=== PATIENT | female | born 1960 | race Caucasian/White ===

== ENCOUNTER 2020-03-07 20:44 | Inpatient (IN) | payer MEDICAID ==
[~2020-03-07] VITALS: Ht 152.4 cm; Wt 64.0 kg
[2020-03-07] MEDS ORDERED: magnesium hydroxide 30ml (MOM) UD suspension PO PRN (20:55)
[2020-03-07] MEDS ORDERED: traZODone 50mg tablet PO PRN (20:55)
[2020-03-07] MEDS ORDERED: mag hydrox/Alum hydrox/simeth 30ml oral suspension PO PRN (20:55)
[2020-03-07] MEDS ORDERED: loperamide 2mg capsule PO PRN (20:55)
[2020-03-07] MEDS ORDERED: acetaminophen 325mg tablet PO PRN (20:55)
[2020-03-07] MEDS ORDERED: SIMV-42 PO (21:00)
[2020-03-07] MEDS ORDERED: LISI40TA4 PO (21:00)
[2020-03-07] MEDS ORDERED: BUSP10TA11 PO (21:00)
[2020-03-07] MEDS ORDERED: ACYC-202 PO (21:00)
[2020-03-07 21:10] VITALS: BP 141/43
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
[2020-03-08 07:34] VITALS: BP 114/68
[2020-03-08 07:51] LABS: HEMOGLOBIN A1C 5.3 % (4.5-6.2)
[2020-03-08 07:53] LABS: CHOL/HDL RATIO 4.5 (0.00-4.99); CHOLESTEROL 175 MG/DL (0-200); HDL CHOLESTEROL 39 MG/DL (35-60); LDL CHOLESTEROL 110 MG/DL (50-100); TRIGLYCERIDES 159 MG/DL (20-135)
[2020-03-08] MEDS: atorvastatin 20mg tablet PO SCH (07:56)
--- NOTE | 2020-03-08 11:40 | NUR ---
NURSING IFEOMA NOTE: Legal hold: 5150 Client on involuntary status for DTS Report received from Rolan PATTERSON Why are they here: Pt was hanging around a gas station and would not leave when the attendant asked so they police were called. During interaction with the police, the pt asked if she borrow the officers gun to shoot herself. The police brought her to the [place] [facility] and she was accepted then transferred to [facility]. Assessment What has happened this shift: Patient was awake at change of shift. She came to the group room for breakfast. She took her medications as prescribed without hesitation. Client is breathing rapidly upon interview. She is in constant motion and is bot guarded and tearful. She wants to call her brother, but when offered a cordless phone she refuses stating that she can only use the landlines in the nursing office. Let patient know this area is off limit to patients. I want to speak to my brother. I want him to pick me up. Let patient know she is here on a hold and cannot leave at this time. She seemed all right with this information. At this point she became more guarded Why do you want to know all of that? I dont need no help from you. S/I, H/I: Would not answer A/VH: Denies Sleep: See Sleep Assessment ADL's: Independent Group attendance: No Were meds taken: Yes Any med S/E: None noted or reported. Mental Status Exam Appearance: Disheveled but clean Eye contact: Fair, Intermittent Behavior: Resistive to some parts of assessments, Guarded Suspicious of staff - requires reassurance, Polite Speech: Clear Mood: Not too good. Affect: Blunted Thought process: Disorganized Thought Content: Wants to call her brother and leave Cognition: A/O x 4 Insight: Poor Judgment: Poor Interventions PRN's used: None Therapeutic interventions: 1:1 assessment, active listening, therapeutic communication, medication administration/education/monitoring, reassured pt that she is safe here, behavior monitoring and intervention; reality orientation, distraction, redirection, Q 15 minute safety checks. Restraints/seclusion/emergency medication: N/A Justification of Continued Inpatient Treatment: Pt needs stabilization with medication initiation, adjustments and monitoring in a safe and therapeutic environment to prevent harm to patient and/or readmission.
[2020-03-08] MEDS: busPIRone 5mg tablet PO SCH (19:51)
[2020-03-08 20:00] VITALS: BP 106/58
--- NOTE | 2020-03-09 05:13 | NUR ---
NURSING IFEOMA NOTE: EDILIA Legal hold: 5150 Client on involuntary status for DTS Report received from Chelsea RN Why are they here: Pt was hanging around a gas station and would not leave when the attendant asked so they police were called. During interaction with the police, the pt asked if she borrow the officers gun to shoot herself. The police brought her to the [facility] and she was accepted then transferred to [facility]. Assessment What has happened this shift: Pt sleeping at change of shift. When approached for 1:1, pt is very guarded and takes a while to soften up. Pt was tearful during the assessment stating Im scared. I never want to leave here. Im scared. Pt endorsed the delusion of men wanting to come and tie her up with a chain and remove her limbs. Reinforced this is a safe environment and offered patient her night time medication for anxiety, as she was presenting as very anxious. Pt denied a few times but eventually agreed to take the BuSpar. Pt told this RN multiple time she did not want to talk, especially when probed regarding mental health assessment questions, and refused her physical assessment as well as her mental health assessment questions. She looked at this sql report writer suspiciously multiple times during the interview. She attended snack, and was polite during interactions, but did not wish to divulge much about how she was feeling. Pt returned to bed to sleep after snack. S/I, H/I: Would not answer A/VH: Denies Sleep: See Sleep Assessment ADL's: Independent Group attendance: N/A Were meds taken: Yes, with multiple attempts to get her to take it Any med S/E: None noted or reported. Mental Status Exam Appearance: Disheveled but clean Eye contact: Fair, Intermittent Behavior: Resistive to some parts of assessments, Guarded, Suspicious of staff - requires reassurance, Polite Speech: Clear Mood: Im fine, Im scared; Pt presents as tearful, and anxious Affect: Blunted Thought process: Paranoid/Suspicious, Delusional Thought Content: Wants to be left alone, wants to stay here because she is scared of the people out to harm her Cognition: A/O x 4 Insight: Poor Judgment: Poor Interventions PRN's used: None Therapeutic interventions: 1:1 assessment, active listening, therapeutic communication, medication administration/education/monitoring, reassured pt that she is safe here, behavior monitoring and intervention; reality orientation, distraction, redirection, Q 15 minute safety checks. Restraints/seclusion/emergency medication: N/A Justification of Continued Inpatient Treatment: Pt needs stabilization with medication initiation, adjustments and monitoring in a safe and therapeutic environment to prevent harm to patient and/or readmission.
[2020-03-09 08:00] VITALS: BP 112/60
[2020-03-09] MEDS: busPIRone 5mg tablet PO SCH ×2 (08:02→20:00)
[2020-03-09] MEDS: lisinopril 20mg tablet PO SCH (08:03)
[2020-03-09] MEDS: atorvastatin 20mg tablet PO SCH (08:03)
--- NOTE | 2020-03-09 16:14 | NUR ---
NURSING PROGRES NOTE Legal hold: 5150 Client on involuntary status for DTS Report received from RN with use of SBAR Why are they here: Pt was hanging around a gas station and would not leave when the attendant asked so they police were called. During interaction with the police, the pt asked if she borrow the officers gun to shoot herself. The police brought her to the [facility] and she was accepted then transferred to [facility]. Assessment What has happened this shift: Received Pt in bed sleeping w/o distress at beginning of shift. Pt awoke and cooperative with vitals and ate breakfast in community room. Pt took AM meds w/o issue. Several attempts made at conversation with her, during which she used minimal words in soft voice to respond. Poverty of speech evident and she became tearful at one point. Pt became audible after lunch when requesting more food. Pt states she is homeless and did not elaborate on how she got here. Encouraged her to contact friends or family for support. Explained 5150 timing to her as she thought today was the day she was leaving. Pt withdrawn and guarded with minimal interaction, and moments of sadness. S/I, H/I: Pt did not respond to direct qs A/VH: Denies Sleep: Napped ADL's: Independent Group attendance: No Were meds taken: Yes Any med S/E: None noted or reported Mental Status Exam Appearance: Disheveled but clean Eye contact: Poor Behavior: Withdrawn, Guarded, Suspicious of staff, Polite Speech: Clear, too soft to hear at times Mood: Depressed, tearful Affect: Blunted Thought process: Disorganized Thought Content: Wants to leave Cognition: A/O x 4 Insight: Poor Judgment: Poor Interventions PRN's used: None Therapeutic interventions: 1:1 assessment, active listening, therapeutic communication, medication administration/education/monitoring, reassured pt that she is safe here, behavior monitoring and intervention; reality orientation, distraction, redirection, Q 15 minute safety checks. Restraints/seclusion/emergency medication: N/A Justification of Continued Inpatient Treatment: Pt needs stabilization with medication initiation, adjustments and monitoring in a safe and therapeutic environment to prevent harm to patient and/or readmission.
[2020-03-09 20:18] VITALS: BP 106/54
--- NOTE | 2020-03-10 00:40 | NUR ---
Nursing Progress Note: Legal hold: 5150 Client on involuntary status for DTS Report received from Joe RN with use of SBAR Why are they here: Pt was hanging around a gas station and would not leave when the attendant asked so they police were called. During interaction with the police, the pt asked if she borrow the officers gun to shoot herself. The police brought her to the [facility] and she was accepted then transferred to [facility]. Assessment What has happened this shift: The patient was sleeping at shift change. She was woken later for 1:1 assessment. She would not answer any questions about herself. The patient came out of her room at snack time, and sat in the community room. She had Buspar ordered for nighttime, but would not take it, "I'm not taking that, it doesn't work." She got up and went back to her room and climbed in bed. She has been asleep since then. S/I, H/I: No answer A/VH: Denies Sleep: See sleep assessment ADL's: Independent Group attendance: No groups at night Were meds taken: Yes Any med S/E: None reported or observed Mental Status Exam Appearance: Disheveled older lady with stringy hair, wearing green unit scrubs Eye contact: Poor Behavior: Withdrawn, Guarded, Suspicious, paranoid, angry Speech: Clear Mood: Depressed Affect: Flat Thought process: Disorganized Thought Content: Wants to leave Cognition: A/O x 4 Insight: Poor Judgment: Poor Interventions PRN's used: None Therapeutic interventions: 1:1 assessment, active listening, therapeutic communication, medication administration/education/monitoring, reassured pt that she is safe here, behavior monitoring and intervention; reality orientation, distraction, redirection, Q 15 minute safety checks. Restraints/seclusion/emergency medication: N/A Justification of Continued Inpatient Treatment: Pt needs stabilization with medication initiation, adjustments and monitoring in a safe and therapeutic environment to prevent harm to patient and/or readmission.
[2020-03-10 07:49] VITALS: BP 112/72
[2020-03-10] MEDS: busPIRone 5mg tablet PO SCH ×3 (07:53→21:11)
[2020-03-10] MEDS: lisinopril 20mg tablet PO SCH (07:54)
[2020-03-10] MEDS: atorvastatin 20mg tablet PO SCH (07:54)
--- NOTE | 2020-03-10 08:09 | NUR ---
[facility] REFERRAL Completed and faxed [facility] referral. BELEM Trent
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
--- NOTE | 2020-03-10 10:36 | NUR ---
Left message for Eloise's daughter, Alexa (ph# [phone]), requesting a call back to gather additional information. BELEM Trent
--- NOTE | 2020-03-10 17:16 | NUR ---
NURSING PROGRESS NOTE: Eloise Legal hold: 5150 Expires today at 2041. Provider aware. Client on involuntary status for DTS Report received from RN with use of SBAR: LEONARDO Del Toro Why are they here: Pt was hanging around a gas station and would not leave when the attendant asked so they police were called. During interaction with the police, the pt asked if she borrow the officers gun to shoot herself. The police brought her to the [place] [facility] and she was accepted then transferred to [facility]. Assessment What has happened this shift: Received patient in bed sleeping with no distress noted. Patient is cooperative with vitals, 1:1 assessment and compliant with medications. When asked about mental health questions pt states I already answered those questions. Patient isolates to her room, except to get up for meals and snacks. Later in the afternoon this consumer loan underwriter approached patient because she was tearful. Pt states I am scared I dont want to be out there by myself. Patient talks a little about being homeless in [place], but doesnt give detail and then says I dont want to talk about that anymore. S/I, H/I: I already answered those questions. I am just fine. A/VH: I already answered those questions. I am just fine. Sleep: 10 hrs. per Sleep Assessment. Napped intermittently throughout day or just laid on her bed. ADL's: Independent. Needs prompting for ADLs. Encouraged to brush teeth and shower. Group attendance: No Were meds taken: Yes, without incident. Any med S/E: None noted or reported. Mental Status Exam Appearance: Disheveled, greasy-hair, wearing green unit scrubs. Eye contact: Poor Behavior: Withdrawn, guarded, isolates to bed. Up for meals and snacks. Speech: Clear, too soft to hear at times Mood: Depressed, guarded, tearful, scared. Affect: Constricted. Thought process: Poverty of thought Thought Content: Situational. Cognition: A/O x 4 Insight: Poor Judgment: Poor Interventions PRN's used: None Therapeutic interventions: 1:1 assessment, active listening, therapeutic communication, medication administration/education/monitoring, reassured pt that she is safe here, behavior monitoring and intervention; reality orientation, distraction, Q 15 minute safety checks. Restraints/seclusion/emergency medication: N/A Justification of Continued Inpatient Treatment: Pt needs stabilization with medication initiation, adjustments and monitoring in a safe and therapeutic environment to prevent harm to patient and/or readmission.
[2020-03-10] MEDS: LORazepam 1 MG tablet PO PRN (18:11)
--- NOTE | 2020-03-10 18:23 | NUR ---
This typewriter repairer entered pt's room, patient looked frightened and anxious. Patient was rocking her legs and said she felt confused. Pt. couldn't remember if she had seen the doctor. Reassured pt. she was safe and offered her prn Ativan. Administered 1mg Ativan.
[2020-03-10 20:19] VITALS: BP 99/57
[2020-03-10] MEDS: olanzapine 10mg tablet PO SCH (21:01)
--- NOTE | 2020-03-11 00:28 | NUR ---
Nursing Progress Note: Legal hold: 5250 Client on involuntary status for DTS Report received from LEONARDO Diaz with use of SBAR Why are they here: Pt was hanging around a gas station and would not leave when the attendant asked so they police were called. During interaction with the police, the pt asked if she borrow the officers gun to shoot herself. The police brought her to the [facility] and she was accepted then transferred to [facility]. Assessment What has happened this shift: The patient was seen right after she had been given her 5250. It had been explained to her, but she appears confused, and can't remember if she even spoke to a Doctor today. It had been explained to her that she would have a chance to dispute. If she wanted to dispute, she would need a plan that shows her ability to manage her safety, housing, and provide food for herself. She has poverty of thought, and takes time to answer questions, if she answers at all. She was brought her HS medicine, but stated, "I don't want to take any medicine right now." This typewriter mechanic asked RENO Del Toro if she would try. Katey was able to get the patient to take the Olanzapine, but not Buspar. The patient went back to sleep, and has remained isolated to her room all night. S/I, H/I: "Sometimes" A/VH: Denies Sleep: See sleep assessment ADL's: Independent Group attendance: No groups at night Were meds taken: Yes Any med S/E: None reported or observed Mental Status Exam Appearance: Disheveled older lady with stringy, greasy hair, wearing green unit scrubs Eye contact: Poor Behavior: Withdrawn, Guarded, Suspicious, paranoid, irritable Speech: Clear Mood: Depressed Affect: Flat Thought process: Disorganized Thought Content: Wants to leave Cognition: A/O x 4 Insight: Poor Judgment: Poor Interventions PRN's used: None Therapeutic interventions: 1:1 assessment, active listening, therapeutic communication, medication administration/education/monitoring, reassured pt that she is safe here, behavior monitoring and intervention; reality orientation, distraction, redirection, Q 15 minute safety checks. Restraints/seclusion/emergency medication: N/A Justification of Continued Inpatient Treatment: Pt needs stabilization with medication initiation, adjustments and monitoring in a safe and therapeutic environment to prevent harm to patient and/or readmission.
[2020-03-11] MEDS: atorvastatin 20mg tablet PO SCH (07:34)
[2020-03-11] MEDS: lisinopril 20mg tablet PO SCH (07:36)
[2020-03-11 07:47] VITALS: BP 90/40
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
--- NOTE | 2020-03-11 16:09 | NUR ---
NURSING PROGRESS NOTE: Eloise Legal hold: 5250 Client on involuntary status for DTS Report received from RN with use of SBAR: LEONARDO Del Toro Why are they here: Pt was hanging around a gas station and would not leave when the attendant asked so they police were called. During interaction with the police, the pt asked if she borrow the officers gun to shoot herself. The police brought her to the [facility] and she was accepted then transferred to [facility]. Assessment What has happened this shift: Received pt sleeping in bed at shift change. Pt. awakens for medications. Patient is obsessed about her mattress on her bed, because it is not perfectly even and has a slight upward swing towards the knee of the bed, attempted to readjust, without success. During 1:1, patient states I already answered these questions yesterday. Patient will give one or two word answers then shuts down conversation. S/I, H/I: Denies. A/VH: Denies. Sleep: 9 hrs. NOC, napped. ADL's: Independent. Needs prompting for ADLs. Encouraged to brush teeth and shower. Group attendance: No Were meds taken: Yes. Any med S/E: None noted or reported. Mental Status Exam Appearance: Disheveled, dirty grajeda haired woman in casual clothing. Eye contact: Poor Behavior: Withdrawn, guarded, isolates to bed. Up for meals and snacks. Speech: Clear, soft. Mood: Depressed. Affect: Constricted. Thought process: Poverty of thought Thought Content: Uneven mattress. Cognition: A/O x 4 Insight: Poor Judgment: Poor Interventions PRN's used: None Therapeutic interventions: 1:1 assessment, active listening, therapeutic communication, medication administration/education/monitoring, reassured pt that she is safe here, behavior monitoring and intervention; reality orientation, distraction, Q 15 minute safety checks. Restraints/seclusion/emergency medication: N/A Justification of Continued Inpatient Treatment: Pt needs stabilization with medication initiation, adjustments and monitoring in a safe and therapeutic environment to prevent harm to patient and/or readmission.
[2020-03-11] MEDS: LORazepam 1 MG tablet PO PRN (20:04)
[2020-03-11] MEDS: olanzapine 10mg tablet PO SCH (20:04)
[2020-03-11 20:15] VITALS: BP 101/59
--- NOTE | 2020-03-11 23:12 | NUR ---
Nursing Progress Note Legal hold: 5250 for grave disability Report received from Joe PATTERSON with use of SBAR Why are they here: Pt was hanging around a gas station and would not leave when the attendant asked so they police were called. During interaction with the police, the pt asked if she borrow the officers gun to shoot herself. The police brought her [place] [facility] [place] and she was accepted then transferred to [facility]. Assessment What has happened this shift: The patient spent the majority of the evening on her bed. She appears to be a petite woman who appears much older than her stated age. She had dirty scrubs on and had poor oral hygiene. She stated she has not been showering and her hair was matted, greasy and unkempt. She refused to shower. She reports that she did not sleep well last night and at HS she was given ativan with her zyprexa which she took with no problem. She stated she feels the same as when she came in and stated she felt her mood was "Depressed, afraid and scared" but did not elaborate. She was unable to formulate a plan for care if she left the hospital. She stated she does have a daughter who lives in [place] but has no way to contact her. She stated she had another daughter who lived out of the area. She stated that she has been worrying about her children and how they are doing. She stated her energy level was low. Insight and judgement are very poor. Her affect was blunted. Her replies to questions was spontaneous with a normal rate and volume. She is withdrawn and not socializing with others. S/I, H/I: Denies but states depression is better than on admit. A/VH: Denied but seems paranoid Sleep: Reports poor sleep last night and Ativan was given at HS ADL's: The patient needs prompting for self care Were meds taken: Yes Any med S/E None reported or observed Mental Status Exam Justification of Continued Inpatient Treatment: The patient continues to be gravely disabled and at this point is not even maintaining her own personal hygiene here on the unit. She has a plan for self care if she were to leave the safety of the inpatient unit.
[2020-03-12 08:00] VITALS: BP 83/44
[2020-03-12] MEDS: lisinopril 20mg tablet PO SCH (08:00)
[2020-03-12] MEDS: atorvastatin 20mg tablet PO SCH (08:11)
--- NOTE | 2020-03-12 14:08 | NUR ---
Initial: Pt admit w/ SI hx homeless per EMR. PO 75-100% avg regular diet meeting needs. LBM 03/11. TG 159 receiving lipitor. No nutrition concerns at this time. Will continue to monitor. Rec: 1. continue regular diet 2. bowel care per rx 3. wt per rx Addendum: 03/12/20 at [address] Amended: Links added. Addendum: 03/12/20 at [address] Initial: Pt admit w/ SI hx homeless per EMR. PO 75-100% avg regular diet meeting needs. LBM 03/11. TG 159 receiving lipitor. No nutrition concerns at this time. Will continue to monitor. Rec: 1. continue regular diet; consider heart healthy diet if MD agreeable 2. bowel care per rx 3. wt per rx
--- NOTE | 2020-03-12 14:40 | NUR ---
NURSING PROGRESS NOTE: Legal hold: 5250 Client on involuntary status for DTS Report received from RN with use of SBAR: LEONARDO Del Toro Why are they here: Pt was hanging around a gas station and would not leave when the attendant asked so they police were called. During interaction with the police, the pt asked if she borrow the officers gun to shoot herself. The police brought her to the [place] [facility] and she was accepted then transferred to [facility]. Assessment What has happened this shift: Pt is quiet and guarded. She was up for breakfast and cooperative with medications. Pt returns to her room after meals to nap. Pt is alert and oriented. She knew where she was and why, she only got the date wrong by one day; she thought it was the 11 of March instead of the . Pt admitted to feeling a little depressed but denied SI. Pt denied AH/VH/HI. Asked pt why she had been feeling suicidal when she asked for the community relations police lieutenant's gun to kill herself. Pt replied, "I was confused." Asked pt if she still felt confused, she replied, "I still feel the same." Asked pt if she was fearful of someone. Pt answered yes in a fearful tone of voice. Asked pt if she was afraid here. Pt answered no. Determined that she was fearful of people on the streets. Asked pt if someone had threatened her. Pt replied, "no, I just feel it." Encouraged pt to shower today to which she agreed. PCT stated that pt went into the shower room and came out with her hair wet but he was unsure if she had used soap or shampoo. S/I, H/I: Pt denies. A/VH: Pt denies. Sleep: Pt slept 8.75 hours last night per noc shift report, she napped frequently throughout the day. ADL's: Independent. Needs encouragement for personal hygiene, showered today. Group attendance: No Were meds taken: Yes. Any med S/E: None noted or reported. Mental Status Exam Appearance: Disheveled, grajeda greasy haired older appearing woman dressed in green hospital scrubs. Eye contact: Poor to fair Behavior: Withdrawn, guarded, isolates to bed. Up for meals and snacks. Speech: Clear, soft, minimal Mood: Depressed, fearful Affect: Constricted. Thought process: Paranoid, fearful Thought Content: She is confused, she feels afraid of people on the streets. Cognition: A/O x 3 Insight: Fair Judgment: Poor Interventions PRN's used: None Therapeutic interventions: 1:1 assessment, establishment of rapport,therapeutic communication,encouragement to express thoughts and feelings, active listening, medication administration/education/monitoring, reassured pt that she is safe here, encouragement to perform personal hygiene, encouragement to come to groups, behavior monitoring and intervention; reality orientation, reassurance that pt is safe here, provided positive reinforcement, Q 15 minute safety checks. Restraints/seclusion/emergency medication: N/A Justification of Continued Inpatient Treatment: Pt needs stabilization with medication adjustment and monitoring in a safe and therapeutic environment until stable and a viable discharge plan formulated to prevent harm to patient and/or readmission. Addendum: 03/12/20 at 1650 by Gwendolyn "Cayden Irving RN Held Lisinopril this morning for decreased BP 83/44.
[2020-03-12 19:42] VITALS: BP 91/42
[2020-03-12] MEDS: olanzapine 10mg tablet PO SCH (21:49)
--- NOTE | 2020-03-13 01:06 | NUR ---
Nursing Progress Note: Legal hold: 5250 Client on involuntary status for DTS Report received from RENO Murray with use of SBAR Why are they here: Pt was hanging around a gas station and would not leave when the attendant asked so they police were called. During interaction with the police, the pt asked if she borrow the officers gun to shoot herself. The police brought her to the [facility] and she was accepted then transferred to [facility] [facility]. Assessment What has happened this shift: Pt was sleeping during shift change. Respirations are even and unlabored. Woke up pt for her HS meds and she seemed irritable. States that she doesnt want her medication right now, but would take it later. Remained isolative to her room for the entire evening. Pt did eventually take her medication but she is very dismissive during 1:1 physical assessment. Every question asked she answers every day. She presents as irritable and pauses for a very long time before answering questions being asked. Pt states that she just feels very tired and wants to go back to sleep. Denies any A/VH, S/I, H/I, or anxiety. Is not observed responding to internal stimuli. Encouraged pt to take a shower but she refused. She returned to sleep shortly after. S/I, H/I: Denies A/VH: Denies Sleep: Currently sleeping, see sleep assessment for total hours ADL's: Independent, requires prompting Group attendance: No groups during night supervisor Were meds taken: Yes Any med S/E: None reported or observed Mental Status Exam Appearance: Disheveled, wearing green unit scrubs and unkempt hair Eye contact: Very poor, minimal Behavior: Withdrawn, Guarded, irritable, isolative Speech: Clear, minimal Mood: Depressed, tired Affect: Flat Thought process: Thought blocking Thought Content: Discharge, meds Cognition: A/O x 4 Insight: Poor Judgment: Poor Interventions PRN's used: None Therapeutic interventions: 1:1 assessment, active listening, therapeutic communication, medication administration/education/monitoring, reassured pt that she is safe here, behavior monitoring and intervention; reality orientation, distraction, redirection, Q 15 minute safety checks. Restraints/seclusion/emergency medication: N/A Justification of Continued Inpatient Treatment: Pt needs stabilization with medication initiation, adjustments and monitoring in a safe and therapeutic environment to prevent harm to patient and/or readmission.
[2020-03-13 07:28] VITALS: BP 104/66
[2020-03-13] MEDS: atorvastatin 20mg tablet PO SCH (08:06)
[2020-03-13] MEDS: acetaminophen 325mg tablet PO PRN (08:07)
[2020-03-13] MEDS: lisinopril 20mg tablet PO SCH (08:07)
--- NOTE | 2020-03-13 14:16 | NUR ---
NURSING PROGRESS NOTE: Legal hold: 5250 Client on involuntary status for DTS Report received from RN with use of SBAR: Rosalba Menendez RN Why are they here: Pt was hanging around a gas station and would not leave when the attendant asked so they police were called. During interaction with the police, the pt asked if she borrow the officers gun to shoot herself. The police brought her to the [facility] and she was accepted then transferred to [facility]. Assessment What has happened this shift: Pt was up for breakfast and cooperative with medication. She returns to bed after meals to nap. Pt is guarded, avoidant, and isolative to self. Pt is still depressed, denies SI/HI/AH/VH. Pt eats 100% of her meals. Pt c/o 6/10 bilateral leg pain this morning and was given prn Tylenol 650 mg with good effect. S/I, H/I: Pt denies. A/VH: Pt denies. Sleep: Pt slept 8.5 hours last night per noc shift report, she napped frequently throughout the day. ADL's: Independent. Group attendance: No Were meds taken: Yes. Any med S/E: None noted or reported. Mental Status Exam Appearance: Disheveled, grajeda greasy haired older appearing woman dressed in green hospital scrubs. Eye contact: Poor to fair Behavior: Withdrawn, guarded, isolates to bed. Up for meals and snacks. Speech: Clear, soft, minimal Mood: Depressed, fearful Affect: Constricted. Thought process: Paranoid, fearful Thought Content: Pt did not express her thoughts much today, avoidant. Cognition: A/O x 3 Insight: Fair Judgment: Poor Interventions PRN's used: Tylenol 650 mg Therapeutic interventions: 1:1 assessment, establishment of rapport,therapeutic communication,encouragement to express thoughts and feelings, active listening, medication administration/education/monitoring, reassured pt that she is safe here, encouragement to perform personal hygiene, encouragement to come to groups, behavior monitoring and intervention; reality orientation, Q 15 minute safety checks. Restraints/seclusion/emergency medication: N/A Justification of Continued Inpatient Treatment: Pt needs stabilization with medication adjustment and monitoring in a safe and therapeutic environment until stable and a viable discharge plan formulated to prevent harm to patient and/or readmission.
[2020-03-13 19:48] VITALS: BP 100/60
[2020-03-13] MEDS: olanzapine 10mg tablet PO SCH (20:14)
--- NOTE | 2020-03-13 22:49 | NUR ---
Nursing Progress Note: Legal hold: 5250 Client on involuntary status for DTS Report received from RENO Murray with use of SBAR Why are they here: Pt was hanging around a gas station and would not leave when the attendant asked so they police were called. During interaction with the police, the pt asked if she borrow the officers gun to shoot herself. The police brought her to the [facility] and she was accepted then transferred to [facility]. Assessment What has happened this shift: Pt was in her room sleeping during shift change. Pt was more cooperative and engaging today. When asked about A/VH, she denies and does not appear to be responding to internal stimuli. When asked how she was feeling she states Im okay just afraid and worried. She would not elaborate on why she was feeling this way but this RN encouraged pt to come out of her room and grab a snack. Reminded her that she was safe here. She also states that she has been having trouble sleeping although it seems like she has been getting pretty good sleep. Pt did come out and asked for snack and ate it in group room. Offered her something for sleep but she refused. Pt took her Zyprexa and returned to bed. Pt would like for her BP to be taken manually every time. This RN informed pt that it might not be possible to take a manual BP every time but would pass it on to day shift. S/I, H/I: Denies A/VH: Denies Sleep: Currently sleeping, see sleep assessment for total hours ADL's: Independent, requires prompting Group attendance: No groups during shift supervisor film processing Were meds taken: Yes Any med S/E: None reported or observed Mental Status Exam Appearance: Disheveled, wearing green unit scrubs and unkempt hair Eye contact: Very poor, minimal Behavior: Cooperative, more talkative Speech: Clear, minimal Mood: Depressed, fearful, worried Affect: Flat Thought process: Thought blocking Thought Content: Pt states that she is worried and afraid about something but would not elaborate what is making her worried Cognition: A/O x 4 Insight: Poor Judgment: Poor Interventions PRN's used: None Therapeutic interventions: 1:1 assessment, active listening, therapeutic communication, medication administration/education/monitoring, reassured pt that she is safe here, behavior monitoring and intervention; reality orientation, distraction, redirection, Q 15 minute safety checks. Restraints/seclusion/emergency medication: N/A Justification of Continued Inpatient Treatment: Pt needs stabilization with medication initiation, adjustments and monitoring in a safe and therapeutic environment to prevent harm to patient and/or readmission.
[2020-03-14 07:00] VITALS: BP 134/49
[2020-03-14] MEDS: atorvastatin 20mg tablet PO SCH (08:15)
[2020-03-14] MEDS: lisinopril 20mg tablet PO SCH (08:15)
--- NOTE | 2020-03-14 17:00 | NUR ---
NURSING PROGRESS NOTE: Legal hold: 5250 Client on involuntary status for DTS Report received from RN with use of SBAR: Rosalba Menendez RN Why are they here: Pt was hanging around a gas station and would not leave when the attendant asked so they police were called. During interaction with the police, the pt asked if she borrow the officers gun to shoot herself. The police brought her to the [place] [facility] and she was accepted then transferred to [facility]. Assessment What has happened this shift: Received patient sleeping in bed at shift change. Patient attends all meals in the dining room and comes out for snacks, otherwise lays in bed sleeping or just in her own thoughts. Patient is primarily concerned with her discharge. Patient is homeless and has no where to go upon discharge. She states that she would like a roof over her head, and not have to live on the streets. S/I, H/I: Pt denies. A/VH: Pt denies. Sleep: Pt slept 8.25 hrs. At NOC, napped and rested this shift. ADL's: Independent. Group attendance: No Were meds taken: Yes. Any med S/E: None noted or reported. Mental Status Exam Appearance: Woman who appears older than her age dressed in unit attire with long greasy hair. Eye contact: Poor to fair Behavior: Withdrawn, guarded, isolates to bed. Up for meals and snacks. Speech: Clear, soft, minimal Mood: Depressed Affect: Constricted. Thought process: Paranoid, fearful, circumstantial Thought Content: When she will be discharged. Cognition: A/O x 3 Insight: Fair Judgment: Poor Interventions PRN's used: None Therapeutic interventions: 1:1 assessment, establishment of rapport,therapeutic communication,encouragement to express thoughts and feelings, active listening, medication administration/education/monitoring, reassured pt that she is safe here, encouragement to perform personal hygiene, encouragement to come to groups, behavior monitoring and intervention; reality orientation, Q 15 minute safety checks. Restraints/seclusion/emergency medication: N/A Justification of Continued Inpatient Treatment: Pt needs stabilization with medication adjustment and monitoring in a safe and therapeutic environment until stable and a viable discharge plan formulated to prevent harm to patient and/or readmission.
[2020-03-14 19:32] VITALS: BP 100/58
[2020-03-14] MEDS: docusate sod 100mg capsule PO SCH (20:30)
[2020-03-14] MEDS: OLANZAPINE 5 MG TABLET PO SCH (20:30)
--- NOTE | 2020-03-15 01:04 | NUR ---
Nursing Progress Note: Legal hold: 5250 Client on involuntary status for DTS Report received from RENO Murray with use of SBAR Why are they here: Pt was hanging around a gas station and would not leave when the attendant asked so they police were called. During interaction with the police, the pt asked if she borrow the officers gun to shoot herself. The police brought her to the [facility] and she was accepted then transferred to [facility]. Assessment What has happened this shift: Pt was sleeping during shift change. Pt states that he is still feeling fearful about discharge. Pt did take her medication but was hesitant at first stating that she didnt think that it was actually helping. She asked several questions about what the medication is even for. She did take the medication after this RN informed her what it was for. When this RN walked in to give her this medication, she was observed crying. She stated that she feels really sad because she knows that bad things are going to happen to her and doesnt know what to do about it. She also feels very lonely. She at some points states I just want to leave, I want to get out of here even if its to go to the streets. I just want to get hit by a car. When asked about hallucinations, she states Well I do sometimes, like today I thought I heard my daughter calling my name, but I know it wasnt true. She talked about her daughters as well and state that she misses them. Encourage her to talk to them but states that it is too late. This RN attempted to encourage her to talk about this but eventually she states that she just wants to be left alone. She did appear to be more stable by the end of the interview. S/I, H/I: Denies A/VH: +AH Sleep: Currently sleeping, see sleep assessment for total hours ADL's: Independent, requires prompting Group attendance: No groups during director river restoration Were meds taken: Yes Any med S/E: None reported or observed Mental Status Exam Appearance: Disheveled, wearing green unit scrubs and unkempt hair, refused shower Eye contact: Minimal Behavior: Teary, cooperative, isolative Speech: Clear, minimal Mood: Depressed, sad, fearful Affect: Flat Thought process: Thought blocking Thought Content: Feeling sad, worried about discharge Cognition: A/O x 4 Insight: Poor Judgment: Poor Interventions PRN's used: None Therapeutic interventions: 1:1 assessment, active listening, therapeutic communication, medication administration/education/monitoring, reassured pt that she is safe here, behavior monitoring and intervention; reality orientation, distraction, redirection, Q 15 minute safety checks. Restraints/seclusion/emergency medication: N/A Justification of Continued Inpatient Treatment: Pt needs stabilization with medication initiation, adjustments and monitoring in a safe and therapeutic environment to prevent harm to patient and/or readmission.
[2020-03-15] MEDS: lisinopril 20mg tablet PO SCH (08:00)
[2020-03-15] MEDS: atorvastatin 20mg tablet PO SCH (08:18)
--- NOTE | 2020-03-15 16:46 | NUR ---
NURSING PROGRESS NOTE: Legal hold: 5250 Client on involuntary status for DTS Report received from RN with use of SBAR: Rosalba Menendez RN Why are they here: Pt was hanging around a gas station and would not leave when the attendant asked so they police were called. During interaction with the police, the pt asked if she borrow the officers gun to shoot herself. The police brought her to the [facility] center and she was accepted then transferred to [facility]. Assessment What has happened this shift: Received pt sleeping at shift change. Patient awakens for breakfast and medications, then goes back to bed to sleep. Patient continues to deny all psychotic symptoms, and will not engage with RN. Patient is guarded and wishes to be left alone. S/I, H/I: Pt denies. A/VH: Pt denies. Sleep: napped and rested this shift. ADL's: Independent. Group attendance: No Were meds taken: Yes. Any med S/E: None noted or reported. Mental Status Exam Appearance: Elder female in unit attire with long miller hair. Eye contact: Poor to fair Behavior: Withdrawn, guarded, isolates to bed. Up for meals and snacks. Speech: Clear, soft, minimal Mood: Depressed Affect: Constricted. Thought process: Paranoid, fearful, circumstantial Thought Content: When she will be discharged. Cognition: A/O x 3 Insight: Fair Judgment: Poor Interventions PRN's used: None Therapeutic interventions: 1:1 assessment, establishment of rapport,therapeutic communication,encouragement to express thoughts and feelings, active listening, medication administration/education/monitoring, reassured pt that she is safe here, encouragement to perform personal hygiene, encouragement to come to groups, behavior monitoring and intervention; reality orientation, Q 15 minute safety checks. Restraints/seclusion/emergency medication: N/A Justification of Continued Inpatient Treatment: Pt needs stabilization with medication adjustment and monitoring in a safe and therapeutic environment until stable and a viable discharge plan formulated to prevent harm to patient and/or readmission.
--- NOTE | 2020-03-15 17:16 | NUR ---
0800 Lisinopril held due to low blood pressure 89/51.
[2020-03-15 20:00] VITALS: BP 97/54
[2020-03-15] MEDS: OLANZAPINE 5 MG TABLET PO SCH (20:59)
[2020-03-15] MEDS: docusate sod 100mg capsule PO SCH (20:59)
--- NOTE | 2020-03-16 03:02 | NUR ---
Nursing Progress Note: Legal hold: 5250 Client on involuntary status for DTS Report received from LEONARDO Short with use of SBAR Why are they here: Pt was hanging around a gas station and would not leave when the attendant asked so they police were called. During interaction with the police, the pt asked if she borrow the officers gun to shoot herself. The police brought her to the [facility] [facility] and she was accepted then transferred to [facility]. Assessment What has happened this shift: The patient was observed sleeping at shift change. She woke for snack time, and sat in group room eating. She does not engage in conversation with her peers. She is still paranoid about returning to [place], believing that people mean to harm her. She states that she is doing fine here, and feels somewhat safe. She agrees that the CR would be a nice next step for her. She took her medications and still believes they aren't helping. The patient went back to bed after snacks and HS meds. S/I, H/I: Denies A/VH: +AH Sleep: See sleep assessment for total hours ADL's: Independent, requires prompting Group attendance: No groups during assistant casino shift manager Were meds taken: Yes Any med S/E: None reported or observed Mental Status Exam Appearance: Disheveled, wearing green unit scrubs and unkempt hair. Eye contact: Minimal Behavior: Cooperative, isolative, guarded, paranoid, delusional Speech: Clear, minimal Mood: Depressed, sad, fearful Affect: Flat Thought process: Thought blocking Thought Content: Feeling sad, worried about discharge Cognition: A/O x 4 Insight: Poor Judgment: Poor Interventions PRN's used: None Therapeutic interventions: 1:1 assessment, active listening, therapeutic communication, medication administration/education/monitoring, reassured pt that she is safe here, behavior monitoring and intervention; reality orientation, distraction, redirection, Q 15 minute safety checks. Restraints/seclusion/emergency medication: N/A Justification of Continued Inpatient Treatment: Pt needs stabilization with medication initiation, adjustments and monitoring in a safe and therapeutic environment to prevent harm to patient and/or readmission.
[2020-03-16] MEDS: lisinopril 10 MG tablet PO SCH (08:00)
[2020-03-16] MEDS: atorvastatin 20mg tablet PO SCH (08:34)
[2020-03-16 08:46] VITALS: BP 84/40
--- NOTE | 2020-03-16 08:48 | NUR ---
BLOOD PRESSURE LOW 84/40 HR 75. Lisinopril held. Patient is asymptomatic.
--- NOTE | 2020-03-16 13:54 | NUR ---
NURSING PROGRESS NOTE: Legal hold: 5250 Client on involuntary status for GD Report received from LEONARDO Simon with use of SBAR Why are they here: Pt was hanging around a gas station and would not leave when the attendant asked so they police were called. During interaction with the police, the pt asked if she borrow the officers gun to shoot herself. The police brought her to the [place] [facility] and she was accepted then transferred to [facility]. Assessment What has happened this shift: Mostly isolates to room, lays on bed but awake. Denies wanting to harm herself or anyone else. Denies hearing voices or visual hallucinations. States she is feeling a "bit better", but is concerned about where she will go from here. She expresses some fearful thoughts but "not as bad" and does not want to talk about them. She is cooperative, sad, depressed but calm. Up watching TV with peers after lunch. S/I, H/I: Pt denies. A/VH: Pt denies. Sleep: napped ADL's: Independent. Group attendance: yes Were meds taken: Yes. Any med S/E: None noted or reported. Mental Status Exam Appearance: clean in green scrubs Eye contact: fair Behavior: Withdrawn Speech: Clear, soft, minimal Mood: Depressed Affect: Constricted Thought process: linear Thought Content: where to go at discharge Cognition: Alert Insight: Fair Judgment: Poor Interventions PRN's used: None Therapeutic interventions: 1:1 assessment, establishment of rapport,therapeutic communication,encouragement to express thoughts and feelings, active listening, medication administration/education/monitoring, reassured pt that she is safe here, encouragement to perform personal hygiene, encouragement to come to groups, behavior monitoring and intervention; reality orientation, Q 15 minute safety checks. Restraints/seclusion/emergency medication: N/A Justification of Continued Inpatient Treatment: Pt needs stabilization with medication adjustment and monitoring in a safe and therapeutic environment until stable and a viable discharge plan formulated to prevent harm to patient and/or readmission.
[2020-03-16] MEDS: acetaminophen 325mg tablet PO PRN (18:10)
[2020-03-16] MEDS: docusate sod 100mg capsule PO SCH (20:16)
[2020-03-16] MEDS: OLANZAPINE 5 MG TABLET PO SCH (20:16)
[2020-03-16 20:22] VITALS: BP 94/50
--- NOTE | 2020-03-17 01:03 | NUR ---
Nursing Progress Note: Legal hold: 5250 Client on involuntary status for DTS Report received from Joe RN with use of SBAR Why are they here: Pt was hanging around a gas station and would not leave when the attendant asked so they police were called. During interaction with the police, the pt asked if she borrow the officers gun to shoot herself. The police brought her to the [place] [facility] and she was accepted then transferred to [facility]. Assessment What has happened this shift: The patient was seen at bedside for 1:1. She was in a pretty good mood, and thanked this fiction writer for coming to see her. She reports that she is just lying there resting, "there's nothing else to do. I guess I'll be seeing a director social tomorrow afternoon, and figure out what to do from there." The patient is still guarded and doesn't want to talk about anything. She denies SI and says, "never" when asked about AV/H. She spent the evening in her room, came out for snacks and HS med pass. Later she could be heard yelling at the [facility] for doing Q15 minute checks. "I'm just laying here, I'm alive. Why do you people have to continually come and look at me?" Explained that it was their job to so, and she stopped yelling at them. S/I, H/I: Denies A/VH: +AH Sleep: See sleep assessment for total hours ADL's: Independent, requires prompting Group attendance: No groups during second shift supervisor Were meds taken: Yes Any med S/E: None reported or observed Mental Status Exam Appearance: Disheveled, wearing green unit scrubs and unkempt hair. Eye contact: Minimal Behaviors: Irritable, angry, isolative, guarded, paranoid, delusional Speech: Clear, minimal Mood: Depressed, irritable fearful Affect: Flat Thought process: Thought blocking Thought Content: Feeling sad, worried about discharge Cognition: A/O x 4 Insight: Poor Judgment: Poor Interventions PRN's used: None Therapeutic interventions: 1:1 assessment, active listening, therapeutic communication, medication administration/education/monitoring, reassured pt that she is safe here, behavior monitoring and intervention; reality orientation, distraction, redirection, Q 15 minute safety checks. Restraints/seclusion/emergency medication: N/A Justification of Continued Inpatient Treatment: Pt needs stabilization with medication initiation, adjustments and monitoring in a safe and therapeutic environment to prevent harm to patient and/or readmission.
[2020-03-17] MEDS: atorvastatin 20mg tablet PO SCH (07:53)
[2020-03-17 08:00] VITALS: BP 126/67
[2020-03-17] MEDS: lisinopril 10 MG tablet PO SCH (08:17)
--- NOTE | 2020-03-17 12:40 | NUR ---
NURSING PROGRESS NOTE: Legal hold: 5250 Client on involuntary status for GD Report received from LEONARDO Del Toro with use of SBAR Why are they here: Pt was hanging around a gas station and would not leave when the attendant asked so they police were called. During interaction with the police, the pt asked if she borrow the officers gun to shoot herself. The police brought her to the [place] [facility] and she was accepted then transferred to [facility]. Assessment What has happened this shift: Isolates to room most of morning, eating well. Denies all hallucinations and suicidal thoughts. Talks about daughter and son, but they do not live close by. Unsure of where she will be discharging too. anxiety over discharge. Cooperative and polite. S/I, H/I: Pt denies. A/VH: Pt denies. Sleep: napped ADL's: Independent. Group attendance: yes Were meds taken: Yes. Any med S/E: None noted or reported. Mental Status Exam Appearance: clean in green scrubs Eye contact: fair Behavior: Withdrawn Speech: Clear, soft, minimal Mood: Depressed Affect: Constricted Thought process: linear Thought Content: where to go at discharge Cognition: Alert Insight: Fair Judgment: Poor Interventions PRN's used: None Therapeutic interventions: 1:1 assessment, establishment of rapport,therapeutic communication,encouragement to express thoughts and feelings, active listening, medication administration/education/monitoring, reassured pt that she is safe here, encouragement to perform personal hygiene, encouragement to come to groups, behavior monitoring and intervention; reality orientation, Q 15 minute safety checks. Restraints/seclusion/emergency medication: N/A Justification of Continued Inpatient Treatment: Pt needs stabilization with medication adjustment and monitoring in a safe and therapeutic environment until stable and a viable discharge plan formulated to prevent harm to patient and/or readmission.
--- NOTE | 2020-03-17 16:24 | NUR ---
[facility] INTERVIEW Eloise has an interview with Sajan tomorrow for [facility] at 11 AM. BELEM Trent
[2020-03-17 20:19] VITALS: BP 86/52
[2020-03-17] MEDS: OLANZAPINE 5 MG TABLET PO SCH (21:21)
[2020-03-17] MEDS: docusate sod 100mg capsule PO SCH (21:21)
--- NOTE | 2020-03-18 05:43 | NUR ---
Nursing Progress Note: Legal hold: 5250 Client on involuntary status for DTS Report received from Joe RN with use of SBAR Why are they here: Pt was hanging around a gas station and would not leave when the attendant asked so they police were called. During interaction with the police, the pt asked if she borrow the officers gun to shoot herself. The police brought her to the [place] [facility] and she was accepted then transferred to [facility]. Assessment What has happened this shift: Patient asleep in bed at the beginning of shift. Patient refused to engage in conversation and did not get up for HS snack. Patient cooperative with medication and rolled back over to sleep. S/I, H/I: Refused to answer A/VH: Refused to answer Sleep: Refer to sleep assessment ADL's: Independent, requires prompting Group attendance: No groups this shift Were meds taken: Yes Any med S/E: None reported or observed Mental Status Exam Appearance: Disheveled, wearing green unit scrubs and unkempt hair. Eye contact: Minimal Behaviors: Irritable, isolative Speech: Clear, minimal Mood: Depressed, irritable fearful Affect: Flat Thought process: Thought blocking Thought Content: Unable to assess Cognition: A/O x 4 Insight: Poor Judgment: Poor Interventions PRN's used: None Therapeutic interventions: 1:1 assessment, active listening, therapeutic communication, medication administration/education/monitoring, reassured pt that she is safe here, behavior monitoring and intervention; reality orientation, distraction, redirection, Q 15 minute safety checks. Restraints/seclusion/emergency medication: N/A Justification of Continued Inpatient Treatment: Pt needs stabilization with medication initiation, adjustments and monitoring in a safe and therapeutic environment to prevent harm to patient and/or readmission.
[2020-03-18] MEDS: lisinopril 10 MG tablet PO SCH (07:48)
[2020-03-18] MEDS: atorvastatin 20mg tablet PO SCH (07:48)
[2020-03-18 08:16] VITALS: BP 91/49
--- NOTE | 2020-03-18 11:20 | NUR ---
DISCHARGE PLANNING/[facility] Eloise interviewed with Sajan for [facility]. She continues to remain paranoid and delusional stating she cannot return to the trailer she resides in in [place]. She also stated people are trying to harm her. She stated she does not have SSI which is not true. Her brother is her payee and she had not cashed her last couple checks prior to admit which was odd for her (per her daughter). Informed Eloise that she does have SSI and that she did not goff her checks and she stated she is not allowed to go to the bank. Informed her that she can return to her trailer and she stated she cannot. She admitted she does not like living alone. Eloise also stated that she does not think her medications are helping her at all. She appeared quite depressed and hopeless. Sajan asked her if she has anything to live for and she stated, "no, I really don't want to be alive". She noted she used to take perphenazine and that it was helpful to her. She also believes that she no longer has [employer]i-[employer] just because she cut up her [employer] card. Eloise was disheveled and malodorous. Policy Manager encouraged her to shower today. Policy Manager spoke to Sajan after the interview and informed him that Eloise does have housing and SSI. He accepted her into [facility] for early next week. BELEM Trent
--- NOTE | 2020-03-18 15:31 | NUR ---
Nursing Progress Note: Legal hold: 5250 Client on involuntary status for DTS Report received from LEONARDO Del Toro with use of SBAR Why are they here: Pt was hanging around a gas station and would not leave when the attendant asked so they police were called. During interaction with the police, the pt asked if she borrow the officers gun to shoot herself. The police brought her to the [facility] center and she was accepted then transferred to [facility]. Assessment What has happened this shift: Patient asleep at the beginning of shift. She woke for breakfast and quickly returned to bed. Patient refuses to answer MH assessment questions and states, "I'm alright." Patient refused to go to group and later in shift had [facility] interview. Patient is compliant with medication. She remains isolated to her bedroom the majority of this shift. S/I, H/I: Refused to answer A/VH: Refused to answer ADL's: Independent, requires prompting Group attendance: No Were meds taken: Yes Any med S/E: None reported or observed Mental Status Exam Appearance: Disheveled, wearing green unit scrubs and unkempt hair. Eye contact: Minimal Behaviors: Isolative to room Speech: Clear, minimal Mood: Depressed Affect: Constricted Thought process: Thought blocking Thought Content: Unable to assess Cognition: A/O x 4 Insight: Poor Judgment: Poor Interventions PRN's used: None Therapeutic interventions: 1:1 assessment, active listening, therapeutic communication, medication administration/education/monitoring, reassured pt that she is safe here, behavior monitoring and intervention; reality orientation, distraction, redirection, Q 15 minute safety checks. Restraints/seclusion/emergency medication: N/A Justification of Continued Inpatient Treatment: Pt needs stabilization with medication initiation, adjustments and monitoring in a safe and therapeutic environment to prevent harm to patient and/or readmission.
[2020-03-18] MEDS: acetaminophen 325mg tablet PO PRN (16:58)
[2020-03-18 20:04] VITALS: BP 104/78
[2020-03-18] MEDS: OLANZAPINE 5 MG TABLET PO SCH (20:24)
[2020-03-18] MEDS: docusate sod 100mg capsule PO SCH (20:24)
--- NOTE | 2020-03-18 21:22 | NUR ---
Nursing Progress Note: Legal hold: 5250 Client on involuntary status for DTS Report received from LEONARDO Diaz with use of SBAR Why are they here: Pt was hanging around a gas station and would not leave when the attendant asked so they police were called. During interaction with the police, the pt asked if she borrow the officers gun to shoot herself. The police brought her to the [place] [facility] and she was accepted then transferred to [facility]. Assessment What has happened this shift: Pt was laying in bed at change of shift, she becomes agitated after yelling at her roommate to turning machine set up operator the light. Pt got out of bed, kicked the trash can and slammed the door. Pt refused to answer any questions and spent time isolating to herself. Pt later asked to have manual bp taken, and when asked if she is upset about something and if she wants to talk about it? Pt states "No, I just get like that sometimes." Pt had manual BP taken, pt is med compliant wit meds and remains in her room after having a snack. S/I, H/I: Refused to answer A/VH: Refused to answer ADL's: Independent, requires prompting Group attendance: No Were meds taken: Yes Any med S/E: None reported or observed Mental Status Exam Appearance: Disheveled, wearing green unit scrubs and unkempt hair. Eye contact: Minimal Behaviors: Isolates to her room, easily agitated, kicks trash can and storms out of room slamming door. Speech: Clear, minimal Mood: Depressed, agitated Affect: Constricted, irritable Thought process: Thought blocking Thought Content: Unable to assess Cognition: A/O x 4 Insight: Poor Judgment: Poor Interventions PRN's used: None Therapeutic interventions: 1:1 assessment, active listening, therapeutic communication, medication administration/education/monitoring, reassured pt that she is safe here, behavior monitoring and intervention; reality orientation, distraction, redirection, Q 15 minute safety checks. Restraints/seclusion/emergency medication: N/A Justification of Continued Inpatient Treatment: Pt needs stabilization with medication initiation, adjustments and monitoring in a safe and therapeutic environment to prevent harm to patient and/or readmission.
[2020-03-19 08:06] VITALS: BP 101/50
[2020-03-19] MEDS: atorvastatin 20mg tablet PO SCH (08:29)
[2020-03-19] MEDS: lisinopril 10 MG tablet PO SCH (08:31)
--- NOTE | 2020-03-19 10:00 | NUR ---
Group Therapy: Process Group This Clinicians goal for this process group were as follows: (1) Ask scaling questions about patients current anxiety, depression, and irritability symptoms as a check-in. (2) Provide psychoeducation on grounding activities as a means to reduce the acuity of unwanted mental health symptoms. (3) Introduce mandalas as one such activity for group participation within the milieu. (4) Check-in with patients during the coloring activity to reinforce the importance of engaging in adaptive grounding activities. Patient identified experiencing the following levels of anxiety, depression, and anger/irritability while present in the group milieu (0-low; 10-High). Anxiety: "I don't know."/10 Depression: "High"/10 Anger/irritability: No answer given. Patient presented as properly oriented person, place, and situation during the process group. She presented as unkempt, with uncombed hair. Patient was dressed in [facility] scrubs within the milieu. Psychomotor activity was unremarkable. Patient entered the group milieu approximately 30 minutes after the start of the process group, sitting quietly in a chair in the back of the group room. Patient's thought content was clear, and concrete. Patient's thought process was clear, coherent, and linear. This Clinician did not observe Patient responding to any internal stimuli during session. The rate, latency, and tone of Patients speech was within normal limits. Patient maintained intermittent eye contact with this Clinician. Patient presented in calm euthymic mood, with blunted affect during the process group. Patient presented as cooperative. She responded to this Clinician who greeted her--welcoming her to the process group. Patient presented as nonobtrusive within the group milieu. This Clinician informed Patient that the activity of the process group was to engage in emotionally calming grounding activities, and--as an illustration of this concept--the group was coloring mandalas. Patient listened to this information, but chose to sit in the back of the group room. This Clinician asked Patient where she was from and other questions to develop initial rapport with Patient. He also asked her scaling questions about her anxiety, depression, and anger/irritability symptoms. As noted above, she provided answers to her anxiety, and depression symptoms. When asked about about anger/irritability, she referenced a bunch of different feelings, "Anger, anxiety, depression, frustration...." without providing a number or an answer to the question. Patient told this Clinician where she was from. She quietly left the group milieu after approximately 40 minutes and did not return. Paxton Hernandez MA, LUNCH COUNTER MANAGER Addendum: 03/19/20 at 1134 by Paxton Hernandez SS Amended: Links added.
--- NOTE | 2020-03-19 10:46 | NUR ---
Reassessment: Great appetite, eating PO 75-100% avg regular diet meeting needs. Last BM 03/19. No nutrition concerns at this time. Will continue to monitor. Rec: 1. continue regular diet; consider heart healthy diet in view of TG and LDL levels 2. routine bowel care 3. wt per rx Addendum: 03/19/20 at [address] Amended: Links added.
--- NOTE | 2020-03-19 17:29 | NUR ---
Nursing Progress Note: Legal hold: 5250 Client on involuntary status for DTS Report received from LEONARDO Del Toro with use of SBAR Why are they here: Pt was hanging around a gas station and would not leave when the attendant asked so they police were called. During interaction with the police, the pt asked if she borrow the officers gun to shoot herself. The police brought her to the [facility] center and she was accepted then transferred to [facility]. Assessment What has happened this shift: Patient asleep at the beginning of shift. She woke for breakfast and quickly returned to bed. Patient refuses to answer MH assessment questions and becomes cranky when questioned. Patient refused to go to group. Patient is compliant with medication. She remains isolated to her bedroom the majority of this shift. S/I, H/I: Refused to answer A/VH: Refused to answer ADL's: Independent, requires prompting Group attendance: No Were meds taken: Yes Any med S/E: None reported or observed Mental Status Exam Appearance: Disheveled, wearing green unit scrubs and unkempt hair. Eye contact: Minimal Behaviors: Isolative to room Speech: Clear, minimal Mood: Depressed Affect: Constricted Thought process: Thought blocking Thought Content: Unable to assess Cognition: A/O x 4 Insight: Poor Judgment: Poor Interventions PRN's used: None Therapeutic interventions: 1:1 assessment, active listening, therapeutic communication, medication administration/education/monitoring, reassured pt that she is safe here, behavior monitoring and intervention; reality orientation, distraction, redirection, Q 15 minute safety checks. Restraints/seclusion/emergency medication: N/A Justification of Continued Inpatient Treatment: Pt needs stabilization with medication initiation, adjustments and monitoring in a safe and therapeutic environment to prevent harm to patient and/or readmission.
[2020-03-19 20:00] VITALS: BP 112/78
[2020-03-19] MEDS: OLANZAPINE 5 MG TABLET PO SCH (20:31)
[2020-03-19] MEDS: docusate sod 100mg capsule PO SCH (20:31)
--- NOTE | 2020-03-19 22:48 | NUR ---
Nursing Progress Note: Legal hold: 5250 Client on involuntary status for DTS Report received from LEONARDO Murray with use of SBAR Why are they here: Pt was hanging around a gas station and would not leave when the attendant asked so they police were called. During interaction with the police, the pt asked if she borrow the officers gun to shoot herself. The police brought her to the [facility] [place] [facility] and she was accepted then transferred to [facility]. Assessment What has happened this shift: Pt was sitting in her bed at change of shift, she isolates to herself and only comes out for snacks. Pt denies s/i, and denies any plan to harm herself. She denies having any firearms at her residence in [place]. Pt states she wants to move to [place] because "thats where Parker is from and I talk to his brother Haile." P states she doesnt like living in [place] because "John has a rusted chain he wants to wrap around her neck and an axe he wants to chop her legs off with. John and his friends Kailyn and Vern live behind the [address] in [place]." Pt states she wants to go to [place] despite having no friends or family there but she can't go because she doesnt have money or transportation. S/I, H/I: denies A/VH: denies, does not appear to be RIS ADL's: Independent, requires prompting Group attendance: got up for snack Were meds taken: Yes Any med S/E: None reported or observed Mental Status Exam Appearance: Disheveled, wearing green unit scrubs and unkempt hair, declined a shower Eye contact: Minimal Behaviors: Isolative to room Speech: Clear, minimal Mood: Depressed Affect: Constricted Thought process: Thought blocking Thought Content: fixed delusions, john wanting to kill her with rusted chain Cognition: A/O x 4 Insight: Poor Judgment: Poor Interventions PRN's used: None Therapeutic interventions: 1:1 assessment, active listening, therapeutic communication, medication administration/education/monitoring, reassured pt that she is safe here, behavior monitoring and intervention; reality orientation, distraction, redirection, Q 15 minute safety checks. Restraints/seclusion/emergency medication: N/A Justification of Continued Inpatient Treatment: Pt needs stabilization with medication initiation, adjustments and monitoring in a safe and therapeutic environment to prevent harm to patient and/or readmission.
[2020-03-20] MEDS: lisinopril 10 MG tablet PO SCH (08:00)
[2020-03-20] MEDS: atorvastatin 20mg tablet PO SCH (08:00)
--- NOTE | 2020-03-20 16:45 | NUR ---
Nursing Progress Note: Legal hold: 5250 Client on involuntary status for DTS Report received from Rosalba Thompson RN with use of SBAR Why are they here: Pt was hanging around a gas station and would not leave when the attendant asked so they police were called. During interaction with the police, the pt asked if she borrow the officers gun to shoot herself. The police brought her to the [facility] and she was accepted then transferred to [facility]. Assessment What has happened this shift: Patient is not responding to staff today. She stayed in her bed only getting up for meals and snacks. She refused VS's and medications today. S/I, H/I: Refused to answer A/VH: Refused to answer ADL's: Independent, requires prompting Group attendance: No Were Meds taken: Yes Any med S/E: None reported or observed Mental Status Exam Appearance: Disheveled, wearing green unit scrubs and unkempt hair. Eye contact: Minimal Behaviors: Isolative to room Speech: Clear, minimal Mood: Depressed Affect: Constricted Thought process: Thought blocking Thought Content: Unable to assess Cognition: A/O x 4 Insight: Poor Judgment: Poor Interventions PRN's used: None Therapeutic interventions: 1:1 assessment, provided therapeutic communication w/active listening, medication administration/education/monitoring, reality orientation, Q 15 minute safety checks. Restraints/seclusion/emergency medication: N/A Justification of Continued Inpatient Treatment: Pt needs stabilization with medication initiation, adjustments and monitoring in a safe and therapeutic environment to prevent harm to patient and/or readmission.
[2020-03-20 20:00] VITALS: BP 106/58
[2020-03-20] MEDS: docusate sod 100mg capsule PO SCH (20:29)
[2020-03-20] MEDS: OLANZAPINE 5 MG TABLET PO SCH (20:29)
--- NOTE | 2020-03-20 21:49 | NUR ---
Nursing Progress Note: Legal hold: 5250 Client on involuntary status for DTS Report received from LEONARDO Navas with use of SBAR Why are they here: Pt was hanging around a gas station and would not leave when the attendant asked so they police were called. During interaction with the police, the pt asked if she borrow the officers gun to shoot herself. The police brought her to the [facility] and she was accepted then transferred to [facility]. Assessment What has happened this shift: Pt was in her room at change of shift. Was heard talking to herself but she denies a/vh. Pt is smiling today and doesn't answer many questions, she states she is "better" today. pt continues to isolate to her room, gets out of bed to get snacks and returns to her room. S/I, H/I: denies A/VH: denies ADL's: Independent, requires prompting Group attendance: No Were Meds taken: Yes Any med S/E: None reported or observed Mental Status Exam Appearance: Disheveled, wearing green unit scrubs and unkempt hair. Pt declined shower, states she will take one tomorrow. Eye contact: Minimal Behaviors: Isolative to room Speech: Clear, minimal Mood: Depressed Affect: Constricted Thought process: Thought blocking Thought Content: Unable to assess Cognition: A/O x 4 Insight: Poor Judgment: Poor Interventions PRN's used: None Therapeutic interventions: 1:1 assessment, provided therapeutic communication w/active listening, medication administration/education/monitoring, reality orientation, Q 15 minute safety checks. Restraints/seclusion/emergency medication: N/A Justification of Continued Inpatient Treatment: Pt needs stabilization with medication initiation, adjustments and monitoring in a safe and therapeutic environment to prevent harm to patient and/or readmission.
[2020-03-21 07:46] VITALS: BP 90/52
[2020-03-21] MEDS: atorvastatin 20mg tablet PO SCH (08:00)
[2020-03-21] MEDS: lisinopril 10 MG tablet PO SCH (08:00)
--- NOTE | 2020-03-21 16:10 | NUR ---
Nursing Progress Note: Legal hold: 5250 Client on involuntary status for DTS Report received from Rosalba Thompson RN with use of SBAR Why are they here: Pt was hanging around a gas station and would not leave when the attendant asked so they police were called. During interaction with the police, the pt asked if she borrow the officers gun to shoot herself. The police brought her to the [place] [facility] and she was accepted then transferred to [facility]. Assessment What has happened this shift: Pt has isolated today. Her BP was too low so her Lisinopril was held. She refused Atorvastatin. Provided education on cholesterol but pt still refused it. Pt up for meals. Remains agitated and irritable. She shared she wants to leave. S/I, H/I: Refused to answer A/VH: Refused to answer ADL's: Independent, requires prompting Group attendance: No Were Meds taken: Yes Any med S/E: None reported or observed Mental Status Exam Appearance: Disheveled, wearing green unit scrubs and unkempt hair. Eye contact: Minimal Behaviors: Isolative to room Speech: Clear, minimal Mood: Depressed Affect: Constricted Thought process: Thought blocking Thought Content: Unable to assess Cognition: A/O x 4 Insight: Poor Judgment: Poor Interventions PRN's used: None Therapeutic interventions: 1:1 assessment, provided therapeutic communication w/active listening, medication administration/education/monitoring, reality orientation, Q 15 minute safety checks. Restraints/seclusion/emergency medication: N/A Justification of Continued Inpatient Treatment: Pt needs stabilization with medication initiation, adjustments and monitoring in a safe and therapeutic environment to prevent harm to patient and/or readmission.
[2020-03-21 19:35] VITALS: BP 95/43
[2020-03-21] MEDS: OLANZAPINE 5 MG TABLET PO SCH (20:10)
[2020-03-21] MEDS: docusate sod 100mg capsule PO SCH (21:00)
--- NOTE | 2020-03-22 00:58 | NUR ---
Nursing Progress Note: Legal hold: 5250 Client on involuntary status for DTS Report received from LEONARDO Murray with use of SBAR Why are they here: Pt was hanging around a gas station and would not leave when the attendant asked so they police were called. During interaction with the police, the pt asked if she borrow the officers gun to shoot herself. The police brought her to the [facility] and she was accepted then transferred to [facility]. Assessment What has happened this shift: Pt was lying in bed when I first got on shift, feeling depressed, but calm. Patient took medications but declined colace. Patient smiled, laughed, and has not appeared to be agitated so far this shift. S/I, H/I: Denied A/VH: Denied ADL's: Independent Group attendance: Non on this shift Were Meds taken: Yes, except for colace Any med S/E: None reported or observed Mental Status Exam Appearance: Disheveled, wearing green unit scrubs and unkempt hair. Eye contact: good eye contact Behaviors: Isolative to room Speech: Clear, minimal Mood: Depressed Affect: Constricted Thought process: Thought blocking Thought Content: Unable to assess Cognition: A/O x 4 Insight: Poor Judgment: Poor Interventions PRN's used: None Therapeutic interventions: 1:1 assessment, provided therapeutic communication w/active listening, medication administration/education/monitoring, reality orientation, Q 15 minute safety checks. Restraints/seclusion/emergency medication: N/A Justification of Continued Inpatient Treatment: Pt needs stabilization with medication initiation, adjustments and monitoring in a safe and therapeutic environment to prevent harm to patient and/or readmission.
[2020-03-22] MEDS: lisinopril 10 MG tablet PO SCH (08:00)
[2020-03-22] MEDS: atorvastatin 20mg tablet PO SCH (08:00)
--- NOTE | 2020-03-22 13:49 | NUR ---
Nursing Progress Note: Legal hold: 5250 Client on involuntary status for DTS Report received from Rosalba Thompson RN with use of SBAR Why are they here: Pt was hanging around a gas station and would not leave when the attendant asked so they police were called. During interaction with the police, the pt asked if she borrow the officers gun to shoot herself. The police brought her to the [place] [facility] and she was accepted then transferred to [facility]. Assessment What has happened this shift: Pt in bed at start of shift. She slept until breakfast getting up when breakfast arrived on the unit. Pt continues to refuse Atorvastatin in the AM. She went back to bed after breakfast then got up for lunch. Pt isolates in room most of the shift. S/I, H/I: Refused to answer A/VH: Refused to answer ADL's: Independent, requires prompting Group attendance: No Were Meds taken: Yes Any med S/E: None reported or observed Mental Status Exam Appearance: Disheveled, wearing green unit scrubs and unkempt hair. Eye contact: Minimal Behaviors: Isolative to room Speech: Clear, minimal Mood: Depressed Affect: Constricted Thought process: Thought blocking Thought Content: Unable to assess Cognition: A/O x 4 Insight: Poor Judgment: Poor Interventions PRN's used: None Therapeutic interventions: 1:1 assessment, provided therapeutic communication w/active listening, medication administration/education/monitoring, reality orientation, Q 15 minute safety checks. Restraints/seclusion/emergency medication: N/A Justification of Continued Inpatient Treatment: Pt needs stabilization with medication initiation, adjustments and monitoring in a safe and therapeutic environment to prevent harm to patient and/or readmission.
[2020-03-22 20:00] VITALS: BP 92/60
[2020-03-22] MEDS: OLANZAPINE 5 MG TABLET PO SCH (20:18)
[2020-03-22] MEDS: docusate sod 100mg capsule PO SCH (20:18)
--- NOTE | 2020-03-23 01:54 | NUR ---
Nursing Progress Note: Legal hold: 5250 Client on involuntary status for DTS Report received from LEONARDO Murray with use of SBAR Why are they here: Pt was hanging around a gas station and would not leave when the attendant asked so they police were called. During interaction with the police, the pt asked if she borrow the officers gun to shoot herself. The police brought her to the [facility] and she was accepted then transferred to [facility]. Assessment What has happened this shift: the patient was isolating to her tonight. came out for snack and back to bed. She refused to talk to this commercial underwriter, "I don't want to talk to anybody." Next, when it was HS med pass, "No thanks I'm not taking any tonight." She turned over, and went to sleep. S/I, H/I: Refused to answer A/VH: Refused to answer ADL's: Independent, requires prompting Group attendance: No Were Meds taken: No Any med S/E: None reported or observed Mental Status Exam Appearance: Disheveled, unkempt hair, wearing green unit scrubs. Eye contact: Minimal Behaviors: Isolative to room, guarded, paranoid, irritable Speech: Clear, minimal Mood: Depressed Affect: Constricted Thought process: Thought blocking Thought Content: Unable to assess Cognition: A/O x 4 Insight: Poor Judgment: Poor Interventions PRN's used: None Therapeutic interventions: 1:1 assessment, provided therapeutic communication w/active listening, medication administration/education/monitoring, reality orientation, Q 15 minute safety checks. Restraints/seclusion/emergency medication: N/A Justification of Continued Inpatient Treatment: Pt needs stabilization with medication initiation, adjustments and monitoring in a safe and therapeutic environment to prevent harm to patient and/or readmission.
[2020-03-23] MEDS: atorvastatin 20mg tablet PO SCH (08:00)
--- NOTE | 2020-03-23 09:55 | NUR ---
Faxed Physician's Report and other necessary documents for [facility] admit. BELEM Trent
--- NOTE | 2020-03-23 10:00 | NUR ---
Group Therapy: Process Group This Clinicians goal for this process group were as follows: (1) Ask scaling questions about Patients current anxiety, depression, and irritability symptoms as a check-in. (2) Provide psychoeducation on emotional and situational stressors. (3) Discuss thoughts and feelings that patients experience when they have experienced an emotional and/or situational stressor. (4) Provide psychoeducation on interventions, as actions patients can take to reduce feelings of emotional escalation caused by situational and emotional stressors. (5) Process Patients thoughts and reflections on this topic within the group milieu. Patient presented as properly oriented x4 during the process group. Patient was dressed in [facility] scrubs within the milieu. Psychomotor activity was unremarkable. Patient's thought content was clear, and concrete. Patient's thought process was clear, coherent, and linear. This Clinician did not observe Patient responding to any internal stimuli during session. The rate, latency, and tone of Patients speech was within normal limits. Patient maintained intermittent eye contact with this Clinician. Patient presented in calm, euthymic mood, with congruent affect during the process group. Patient presented as open, cooperative, and was verbally engaged and nonobtrusive within the group milieu. Patient was present at the beginning of the process group. This Clinician asked Patient to identify her subjective impression regarding the acuity of her anxiety, depression, and anger/irritability symptoms. Patient chose not to answer these scaling questions stating, "I'm here, but I'm not here in group." Aside from this comment, Patient freely offered comments about feelings that one would experience, along with thoughts that would be in one's mind, during stressful situations. She was also able to share coping skills that she could utilize in order to reduce the acuity of unwanted stress causing by emotionally triggering situations. Paxton Hernandez MA, BENCH ASSEMBLER OPERATOR Addendum: 03/23/20 at 1141 by Paxton Hernandez Amended: Links added.
[2020-03-23] MEDS ORDERED: ATOR20TA66 PO (12:50)
[2020-03-23] MEDS ORDERED: OLAN20TA34 PO (12:50)
--- NOTE | 2020-03-23 15:08 | NUR ---
Nursing Progress Note: Legal hold: 5250 Client on involuntary status for DTS Report received from LEONARDO Murray with use of SBAR Why are they here: Pt was hanging around a gas station and would not leave when the attendant asked so they police were called. During interaction with the police, the pt asked if she borrow the officers gun to shoot herself. The police brought her to the [place] [facility] and she was accepted then transferred to [facility]. Assessment What has happened this shift: Pt has gone to groups today. She has been visual on the unit most of the day. Again, she did not take her AM Atorvastatin. Encouraged pt to shower and brush her hair she declined stating, "no, leave me alone." S/I, H/I: Responds, "NO" A/VH: Refused to answer ADL's: Independent, requires prompting Group attendance: Yes Were Meds taken: Yes Any med S/E: None reported or observed Mental Status Exam Appearance: Disheveled, wearing green unit scrubs and unkempt hair. Eye contact: Minimal Behaviors: Out of her room more this shift Speech: Clear, minimal Mood: Depressed Affect: Constricted Thought process: Thought blocking Thought Content: Unable to assess Cognition: A/O x 4 Insight: Poor Judgment: Poor Interventions PRN's used: None Therapeutic interventions: 1:1 assessment, provided therapeutic communication w/active listening, medication administration/education/monitoring, reality orientation, Q 15 minute safety checks. Restraints/seclusion/emergency medication: N/A Justification of Continued Inpatient Treatment: Pt needs stabilization with medication initiation, adjustments and monitoring in a safe and therapeutic environment to prevent harm to patient and/or readmission.
[2020-03-23 20:17] VITALS: BP 110/59
[2020-03-23] MEDS: OLANZAPINE 5 MG TABLET PO SCH (20:37)
[2020-03-23] MEDS: docusate sod 100mg capsule PO SCH (20:37)
--- NOTE | 2020-03-24 00:23 | NUR ---
Nursing Progress Note: Legal hold: 5250 Client on involuntary status for DTS Report received from LEONARDO Murray with use of SBAR Why are they here: Pt was hanging around a gas station and would not leave when the attendant asked so they police were called. During interaction with the police, the pt asked if she borrow the officers gun to shoot herself. The police brought her to the [facility] and she was accepted then transferred to [facility]. Assessment What has happened this shift: The patient was crying as this aligner typewriter entered her room. She said that she was sad about "family, life in general." She stated that she wanted to call her brother, but would only use the Nurse's station phone. When asked why, "because other people are listening in." She was just continuing to talk, but her roommate came in the room. She gestured that she wouldn't say more while the roommate was in room. After a bit, she said "forget it, I'm done talking." She was nice enough tonight, looked good like she had showered and brushed her hair. Seen out of her room for longer periods in group room. She denied SI/HI, or AV/H, and was compliant with medications tonight. S/I, H/I: Denies A/VH: denies ADL's: Independent, requires prompting Group attendance: No Were Meds taken: Yes Any med S/E: None reported or observed Mental Status Exam Appearance: Appears clean, hair brushed, wearing green unit scrubs. Eye contact: Good Behaviors: Labile, sad, guarded, paranoid, irritable Speech: Clear, minimal Mood: Depressed Affect: Constricted Thought process: Thought blocking Thought Content: Unable to assess Cognition: A/O x 4 Insight: Poor Judgment: Poor Interventions PRN's used: None Therapeutic interventions: 1:1 assessment, provided therapeutic communication w/active listening, medication administration/education/monitoring, reality orientation, Q 15 minute safety checks. Restraints/seclusion/emergency medication: N/A Justification of Continued Inpatient Treatment: Pt needs stabilization with medication initiation, adjustments and monitoring in a safe and therapeutic environment to prevent harm to patient and/or readmission.
[2020-03-24 07:57] VITALS: BP 85/56
[2020-03-24 08:30] VITALS: BP 110/65
[2020-03-24] MEDS: atorvastatin 20mg tablet PO SCH (08:47)
--- NOTE | 2020-03-24 10:00 | NUR ---
Group Therapy: Process Group This Clinicians goals for this process group were as follows: (1) Ask scaling questions about Patients current anxiety, depression, and irritability symptoms as a check-in. (2) Share with Patients psychoeducation about the importance of being able to identify safe, and supportive people who can assist them with their mental and emotional needs. (3) Share psychoeducation on interpersonal boundaries and considerations to assist Patients in developing the ability to discern which groups and individuals will be helpful in assisting them during times of emotional escalation and crisis. (4) Engage Patients in discussion of the topics discussed within the group milieu. Patient presented as properly oriented x4 during the process group. Patient was dressed in green hospital scrubs within the milieu. Psychomotor activity was unremarkable. Patient's thought content was clear, and concrete. Patient's thought process was clear, coherent, and linear. This Clinician did not observe Patient responding to any internal stimuli during session. The rate, latency, and tone of Patients speech was within normal limits. Patient maintained regular eye contact with this Clinician. Patient presented in calm euthymic mood, with congruent affect during the process group. Patient presented as open, verbally subdued, and nonobtrusive within the group milieu. Patient chose not to verbally participate during today's process group. This Clinician invited Patient to share scaling answers to her levels of anxiety, depression, and anger/irritability. Similar to yesterday's process group, however, Patient reported that she just wanted to be an observer in the group milieu without participating. This Clinician respected this boundary that Patient set. She remained in the process group, in which the discussion of interpersonal boundaries and circles of trust were discussed in the context of questions to ask to recruit supportive people into one's mental health support [place]. Based upon Patient's body posture and eye contact, she appeared to actively track with those who were talking during the process group. Paxton Hernandez MA, BELEM Addendum: 03/24/20 at 1151 by Paxton David SS Amended: Links added.
--- NOTE | 2020-03-24 10:06 | NUR ---
Nursing Progress Note: Legal hold: 5250 Client on involuntary status for GD Report received from nurse with use of SBAR: LEONARDO Del Toro Why are they here: Pt was hanging around a gas station and would not leave when the attendant asked so they police were called. During interaction with the police, the pt asked if she borrow the officers gun to shoot herself. The police brought her to the [facility] [facility] and she was accepted then transferred to [facility]. Assessment What has happened this shift: Received pt. laying in bed sleeping at the beginning of the shift, she awoke, attended breakfast in Group Room, and then returned back to bed. 1:1 completed at bedside, pt. appears anxious AEB jiggling legs nervously, she reports anxiety r/t discharge today, however refuses any intervention at this time. Pt. denies any S/I, H/I, or A/V/HOUSTON and does not appear internally preoccupied. However, she continues to present with paranoid delusions, for example, pt's name bracelet had fallen off at bedside and for a moment she could not find it. Pt. stated nervously, "Someone stole my bracelet! I wonder what they want to do with it?!" However, a moment later pt. was able to locate her bracelet and her fears subsided. When questioned by this hand sign writer, regarding thoughts that others want to hurt her, pt. stated she fears someone will, "Put a rusted chain around my neck." Pt. then shut down and reported that she was going back to bed now, she refused to allow this hand sign writer to preform a physical assessment. Pt. later attended morning Group, however remains guarded and is not observed to be interacting with others. S/I, H/I: Denies A/VH: Denies, pt. does not appear internally preoccupied Sleep: Pt. reports she slept "Okay," sleep hours are 8 ADL's: Requires some encouragement Group attendance: Yes Were meds taken: Yes Any med S/E: None Mental Status Exam Appearance: Hair disheveled, however appropriately dressed Eye contact: Fair Behavior: Cooperative, anxious, guarded, and withdrawn Speech: Soft, responds minimally to questions Mood: Guarded Affect: Constricted Thought process: Poverty of thought Thought Content: Paranoid delusions Cognition: A&O X3 (not to time) Insight: Poor Judgment: Poor Interventions PRN's used: None Therapeutic interventions: Introduced self and attempted to establish rapport, ensured contract for safety, maintained a safe and therapeutic environment, provided clear and simple instructions, attempted to orient to reality, encouraged independent performance of ADLs, and maintained Q 15min safety checks. Restraints/seclusion/emergency medication: N/A Justification of Continued Inpatient Treatment: Per DENYS Lyle, pt. continues to present with psychosis, however no further medication changes are required, she will discharge to [facility] today.
--- NOTE | 2020-03-24 14:07 | NUR ---
Discharge Note: Pt. discharged from the unit at approximately 1407 accompanied by staff. Inventory completed and belongings returned to pt. by [employer] and medications and discharge instructions reviewed with pt. by this fha underwriter. Pt. reports understanding and is able to contract for safety and complete most ADLs with minimal direction from staff. Pt. is being discharged to [facility] and transferred there by a county service parts driver. Pt. discharged with medications, no nicotine replacement required.
== END 2020-03-24 14:19 | disposition short-term general hospital (02) | DRG 751 ==
LOC: ADULT MH 20:44
PROVIDERS: ADMIT Psychiatry & Neurology Psychiatry; ATTEND Psychiatry & Neurology Psychiatry
DX: F29 Unspecified psychosis not due to a substance or known physiological condition (principal); R45.851 Suicidal ideations; E78.5 Hyperlipidemia, unspecified; F12.10 Cannabis abuse, uncomplicated; F32.9 Major depressive disorder, single episode, unspecified; K59.00 Constipation, unspecified; G47.00 Insomnia, unspecified; I95.9 Hypotension, unspecified; B00.9 Herpesviral infection, unspecified; I10 Essential (primary) hypertension; Z59.0 Homelessness; Z85.41 Personal history of malignant neoplasm of cervix uteri; Z90.710 Acquired absence of both cervix and uterus
CPT/HCPCS: 36415; 71045; 80061; 83036; 87081

== ENCOUNTER 2020-05-21 11:13 | Inpatient (IN) | payer MEDICAID ==
[~2020-05-21] VITALS: Ht 157.5 cm; Wt 62.4 kg
[~2020-05-21 11:13] MED LIST: ATOR20TA66 PO; OLAN20TA34 PO; SIMV-42 PO
[2020-05-21] MEDS ORDERED: acetaminophen 325mg tablet PO PRN ×2 (11:55)
[2020-05-21] MEDS ORDERED: magnesium hydroxide 30ml (MOM) UD suspension PO PRN (11:55)
[2020-05-21] MEDS ORDERED: mag hydrox/Alum hydrox/simeth 30ml oral suspension PO PRN (11:55)
[2020-05-21] MEDS ORDERED: loperamide 2mg capsule PO PRN (11:55)
[2020-05-21] MEDS ORDERED: LORazepam 1 MG tablet PO PRN (11:55)
[2020-05-21] MEDS ORDERED: NICOTINE POLACRILEX 2 MG LOZENGE BC PRN (11:55)
--- NOTE | 2020-05-21 16:28 | NUR ---
Admission Note: Pt. arrived on the unit at approximately 1620 in a gurney accompanied by EMS. Pt. had been transferred from a hospital in [place], [facility]. She had been brought there by police after being found wandering the streets. Pt. claims she is homeless, however per previous report from pt's daughter she lives in mobile home in [place]. Pt. has a history of paranoid schizophrenia and was previously discharged form [facility] in February. Pt. was cooperative with the admission process, however appears anxious and possibly paranoid. She also presents as very disheveled and unkept. Belongings were inventoried by Tram Resend[employer], and pt. showered. Addendum: 05/21/20 at 1819 by Adina Trinidad RN Pt. reports S/I with a plan to drown herself, she states, "I tried by the water was too cold." Per the [place] Suicide Risk Assessment pt. is a high risk, however she is able to contract for safety while on the unit. Endorsed to DENYS Lyle and Faizan 15min safety checks ordered at this time. Pt. also reports that she is having S/I r/t what appears to be a paranoid delusion that others want to hurt her. Pt. states, "They want to chop me up in pieces and wrap a aisha chain around my neck." This flex o writer operator provided education to pt. regarding her safety on the unit and she reported understanding and contentment. Will endorse to Noc shift and continue to monitor.
[2020-05-21 17:16] VITALS: BP 133/80
[2020-05-21 19:00] VITALS: BP 119/50
[2020-05-21] MEDS: olanzapine 10mg tablet PO SCH (21:29)
--- NOTE | 2020-05-21 22:18 | NUR ---
NURSING PROGRESS NOTE Legal hold: 5150 Client on involuntary status for GD Report received from LEONARDO Murray with use of SBAR Why are they here: Pt. had been transferred from a hospital in [place], [facility]. She had been brought there by police after being found wandering the streets. Pt. claims she is homeless, however per previous report from pt's daughter she lives in mobile home in [facility]. Pt. has a history of paranoid schizophrenia and was previously discharged form [facility] in February. Pt. reports S/I with a plan to drown herself, she states, "I tried by the water was too cold." Per the [place] Suicide Risk Assessment pt. is a high risk, however she is able to contract for safety while on the unit. Endorsed to DENYS Lyle, and Q 15min safety checks ordered at this time. Pt. also reports that she is having S/I r/t what appears to be a paranoid delusion that others want to hurt her. Pt. states, "They want to chop me up in pieces and wrap a aisha chain around my neck." This comic book writer provided education to pt. regarding her safety on the unit and she reported understanding and contentment. Will endorse to Noc shift and continue to monitor. Assessment What has happened this shift: Pt isolates to her room the entirety of the shift laying in bed, mostly sleeping. She allows staff to do vital signs and physical assessment, but will not answer any questions, she appears too tired,she only keeps her eyes open for few seconds when staff speaks to her, then just closes them again. She does take her HS zyprexa and fall asleep immediately after. S/I, H/I: will not answer A/VH: will not answer Sleep: See sleep assessment ADL's: Independent with encouragement Group attendance: No Were meds taken: Yes Any med S/E: None reported or observed Mental Status Exam Appearance: hair uncombed Eye contact: poor Behavior: sleeps and isolates Speech: minimal Mood: tired Affect: congruent to mood Thought process:TAYLER Thought Content: unable to assess Cognition: alert Insight: Poor Judgment: Poor Interventions PRN's used: Therapeutic interventions: Maintained a safe and therapeutic environment, ensured contract for safety, provided clear and simple instructions, attempted to orient to reality, monitored behavior and need for intervention, provided positive encouragement, and maintained Q 15min checks. Restraints/seclusion/emergency medication: N/A Justification of Continued Inpatient Treatment: Pt. continues to be gravely disabled and requires titration of medications to prevent decompensation and readmission
[2020-05-22 07:36] VITALS: BP 95/43
[2020-05-22] MEDS: atorvastatin 20mg tablet PO SCH (07:54)
[2020-05-22 08:32] LABS: CHOL/HDL RATIO 3.5 (0.00-4.99); CHOLESTEROL 167 MG/DL (0-200); HDL CHOLESTEROL 48 MG/DL (35-60); HEMOGLOBIN A1C 5.4 % (4.5-6.2); LDL CHOLESTEROL 99 MG/DL (50-100); TRIGLYCERIDES 134 MG/DL (20-135)
--- NOTE | 2020-05-22 15:02 | NUR ---
NURSING PROGRESS NOTE Legal hold: 5150 Client on involuntary status for GD Report received from LEONARDO Nathan with use of SBAR Why are they here: Pt. had been transferred from a hospital in [place], [facility]. She had been brought there by police after being found wandering the streets. Pt. claims she is homeless, however per previous report from pt's daughter she lives in mobile home in [facility]. Pt. has a history of paranoid schizophrenia and was previously discharged form [facility] in February. Pt. reports S/I with a plan to drown herself, she states, "I tried by the water was too cold." Per the [place] Suicide Risk Assessment pt. is a high risk, however she is able to contract for safety while on the unit. Endorsed to DENYS Lyle, and Q 15min safety checks ordered at this time. Pt. also reports that she is having S/I r/t what appears to be a paranoid delusion that others want to hurt her. Pt. states, "They want to chop me up in pieces and wrap a aisha chain around my neck." This sql report writer provided education to pt. regarding her safety on the unit and she reported understanding and contentment. Will endorse to Noc shift and continue to monitor. Assessment What has happened this shift: Pt spends all shift in bed. Pt gets up for meals and snacks and back to bed. Pt states feeling sad. Asked pt why she was here. Pt states "They sent me here." Pt states "I have been living on the sidewalk." ASked pt why she went to [place] and why she left her camper. PT states "I dont have a family or a camper." Explained to pt the last time she was here that she was living in a trailer on family property. Pt states "They dont want me to live there." Pt states she would rather go to the mission than go home. Encouraged pt to think about her discharge plans and speak with the social contact worker and the provider. S/I, H/I: denies A/VH: denies Sleep: between meals ADL's: Independent with encouragement Group attendance: No Were meds taken: Yes Any med S/E: None reported or observed Mental Status Exam Appearance: hair uncombed Eye contact: poor Behavior: sleeps and isolates Speech: minimal Mood: Sad Affect: Flat Thought process:normal Thought Content: normal Cognition: alert Insight: Poor Judgment: Poor Interventions PRN's used: none Therapeutic interventions: Maintained a safe and therapeutic environment, ensured contract for safety, provided clear and simple instructions, attempted to orient to reality, monitored behavior and need for intervention, provided positive encouragement, and maintained Q 15min checks. Restraints/seclusion/emergency medication: N/A Justification of Continued Inpatient Treatment: Pt. continues to be gravely disabled and requires titration of medications to prevent decompensation and readmission
[2020-05-22 18:56] LABS: BASOPHILS # (AUTO) 0.1 X10'3 (0-0.2); BASOPHILS % (AUTO) 1.3 % (0-1); EOSINOPHILS # (AUTO) 0.1 X10'3 (0-0.9); EOSINOPHILS % (AUTO) 1.4 % (0-6); HEMATOCRIT 35.9 % (35.0-45.0); HEMOGLOBIN 11.7 g/dl (12.0-16.0); LYMPHOCYTES # (AUTO) 2.3 X10'3 (1.1-4.8); LYMPHOCYTES % (AUTO) 33.4 % (21-51); MEAN CORPUSCULAR HEMOGLOBIN 30.1 PG (27.0-31.0); MEAN CORPUSCULAR HGB CONC 32.7 g/dL (33.0-36.5); MEAN CORPUSCULAR VOLUME 92.3 FL (78-98); MEAN PLATELET VOLUME 7.1 FL (7.4-10.4); MONOCYTES # (AUTO) 0.5 X10'3 (0-0.9); MONOCYTES % (AUTO) 7.3 % (2-12); NEUTROPHILS # (AUTO) 3.8 X10'3 (1.8-7.7); NEUTROPHILS % (AUTO) 56.6 % (42-75); PLATELET COUNT 331 X10'3 (140-440); RED BLOOD COUNT 3.89 X10'6 (4.20-5.60); RED CELL DISTRIBUTION WIDTH 14.3 % (11.5-14.5); WHITE BLOOD COUNT 6.8 X10'3 (4.5-11.0)
[2020-05-22 19:00] VITALS: BP 95/50
[2020-05-22 19:14] LABS: ALANINE AMINOTRANSFERASE 15 U/L (12-78); ALBUMIN/GLOBULIN RATIO 0.9 (1.1-1.5); ALKALINE PHOSPHATASE 67 IU/L (46-116); ANION GAP 5 (8-16); ASPARTATE AMINO TRANSFERASE 7 U/L (10-37); BILIRUBIN,TOTAL 0.2 MG/DL (0.1-1.0); BLOOD UREA NITROGEN 19 MG/DL (7-18); BUN/CREATININE RATIO 20.7 (6.6-38.0); CALCIUM 8.9 MG/DL (8.5-10.1); CHLORIDE 111 MMOL/L (99-107); CREATININE 0.92 MG/DL (0.40-0.90); GLUCOSE 101 MG/DL (70-104); POTASSIUM 4.1 MMOL/L (3.5-5.1); SODIUM 144 MMOL/L (135-145); TOTAL CARBON DIOXIDE 28.2 MMOL/L (24-32); TOTAL PROTEIN 6.4 G/DL (6.4-8.2); eGFR 62 ML/MIN
[2020-05-22] MEDS: traZODone 50mg tablet PO PRN (20:24)
[2020-05-22] MEDS: olanzapine 10mg tablet PO SCH (20:24)
--- NOTE | 2020-05-22 20:28 | NUR ---
Patient is medication compliant but exhibits some irritation about being disturbed.
--- NOTE | 2020-05-23 01:05 | NUR ---
NURSING PROGRESS NOTE Legal hold: 5150 Client on involuntary status for GD Report received from LEONARDO Murray with use of SBAR. Why are they here: Pt. had been transferred from a hospital in [place], [facility]. She had been brought there by police after being found wandering the streets. Pt. claims she is homeless, however per previous report from pt's daughter she lives in mobile home in [facility]. Pt. has a history of paranoid schizophrenia and was previously discharged form [facility] in February. Pt. reports S/I with a plan to drown herself, she states, "I tried by the water was too cold." Per the [place] Suicide Risk Assessment pt. is a high risk, however she is able to contract for safety while on the unit. Endorsed to DENYS Lyle, and Q 15min safety checks ordered at this time. Pt. also reports that she is having S/I r/t what appears to be a paranoid delusion that others want to hurt her. Pt. states, "They want to chop me up in pieces and wrap a aisha chain around my neck." This underwriter solicitation director provided education to pt. regarding her safety on the unit and she reported understanding and contentment. Will endorse to Noc shift and continue to monitor. Assessment What has happened this shift: Patient isolated in her room following shift change. 1:1 interview at bedside. Patient is napping intermittently. She was awoken for this interview. Patient tells this underwriter solicitation director that she ate her full dinner. Patient states "I'm unhappy, I have no place to go." She admits to depression, her speech is slow and quiet. She presents as disheveled. Patients to S/I, she denies a plan. There is a denial of H/I or any hallucinations. Patient is medication compliant. The patient is reminded that she is in a safe place, she exhibits understanding of this advisement. Her affect is flat. S/I, H/I: S/I without a plan, denies H/I. A/VH: Denies. Sleep: Naps after dinner. Sleep hours will be compiled at 0500. ADL's: Independent with encouragement. Group attendance: No group on shiftman. Were meds taken: Yes, patient is medication compliant. Any med S/E: None reported or observed. Mental Status Exam Appearance: Disheveled. Eye contact: Poor. Behavior: Self isolates and sleeps. Speech: Slow and quiet. Mood: Depressed. Affect: Flat. Thought process: Linear. Thought Content: Concerned about living accommodations and future. Cognition: Alert. Insight: Poor. Judgment: Poor. Interventions PRN's used: Desyrel. Therapeutic interventions: Maintained a safe and therapeutic environment, ensured contract for safety, provided clear and simple instructions, attempted to orient to reality, monitored behavior and need for intervention, provided positive encouragement, and maintained Q 15min checks. Restraints/seclusion/emergency medication: N/A Justification of Continued Inpatient Treatment: Pt. continues to be gravely disabled and requires titration of medications to prevent decompensation and readmission
[2020-05-23 07:00] VITALS: BP 108/57
[2020-05-23] MEDS: atorvastatin 20mg tablet PO SCH (07:59)
--- NOTE | 2020-05-23 17:42 | NUR ---
NURSING PROGRESS NOTE Legal hold: 5150 Client on involuntary status for GD Report received from Rosalba Thompson RN with use of SBAR. Why are they here: Pt. had been transferred from a hospital in [place], [facility]. She had been brought there by police after being found wandering the streets. Pt. claims she is homeless, however per previous report from pt's daughter she lives in mobile home in [place]. Pt. has a history of paranoid schizophrenia and was previously discharged form [facility] in February. Pt. reports S/I with a plan to drown herself, she states, "I tried by the water was too cold." Per the [place] Suicide Risk Assessment pt. is a high risk, however she is able to contract for safety while on the unit. Endorsed to DENYS Lyle, and Q 15min safety checks ordered at this time. Pt. also reports that she is having S/I r/t what appears to be a paranoid delusion that others want to hurt her. Pt. states, "They want to chop me up in pieces and wrap a aisha chain around my neck." This writer editor provided education to pt. regarding her safety on the unit and she reported understanding and contentment. Will endorse to Noc shift and continue to monitor. Assessment What has happened this shift: Pt. asleep at start of shift. Pt. awake for medications and breakfast. After breakfast pt. went back to sleep in bed. Pt ate all meals in the community room. 1:1 done at bedside. Pt. denies SI/HI, A/V hallucinations. When asked why she is here, pt. states, The ambulance brought me here, when questioned further, pt. states, Thats enough questions. Pt. isolated to her room most of the day and was guarded. S/I, H/I: Denies. A/VH: Denies. Sleep: Napped intermittently throughout the day. ADL's: Independent with prompting. Group attendance: No Were meds taken: Yes Any med S/E: Denies Mental Status Exam Appearance: Disheveled. Eye contact: Poor. Behavior: Isolates to her room, laying in bed. Speech: Minimal, quiet. Mood: Depressed. Affect: Flat. Thought process: Thought blocking. Thought Content: Unable to assess. Cognition: A&Ox3 (not to situation) Insight: Poor. Judgment: Poor. Interventions PRN's used: None Therapeutic interventions: Maintained a safe and therapeutic environment, ensured contract for safety, provided clear and simple instructions, attempted to orient to reality, monitored behavior and need for intervention, provided positive encouragement, and maintained Q 15min checks. Restraints/seclusion/emergency medication: N/A Justification of Continued Inpatient Treatment: Pt. continues to be gravely disabled and requires titration of medications to prevent decompensation and readmission
--- NOTE | 2020-05-23 18:40 | NUR ---
FAMILY CONTACTS: RN spoke with son-in-law Robert who asks for updates from doctor and perinatal social worker. Number: [phone]. Pt.'s daughter Yola: [phone]. Robert reports that the family would like Pt. to move her in with daughter Yola and her family.
[2020-05-23 19:13] VITALS: BP 95/44
[2020-05-23] MEDS: olanzapine 10mg tablet PO SCH (20:07)
[2020-05-23] MEDS: traZODone 50mg tablet PO PRN (20:07)
--- NOTE | 2020-05-23 23:05 | NUR ---
NURSING PROGRESS NOTE Legal hold: 5150 Client on involuntary status for GD Report received from LEONARDO Murray with use of SBAR. Why are they here: Pt. had been transferred from a hospital in [place], [facility]. She had been brought there by police after being found wandering the streets. Pt. claims she is homeless, however per previous report from pt's daughter she lives in mobile home in [facility]. Pt. has a history of paranoid schizophrenia and was previously discharged form [facility] in February. Pt. reports S/I with a plan to drown herself, she states, "I tried by the water was too cold." Per the [place] Suicide Risk Assessment pt. is a high risk, however she is able to contract for safety while on the unit. Endorsed to DENYS Lyle, and Q 15min safety checks ordered at this time. Pt. also reports that she is having S/I r/t what appears to be a paranoid delusion that others want to hurt her. Pt. states, "They want to chop me up in pieces and wrap a aisha chain around my neck." This scientific technical writer provided education to pt. regarding her safety on the unit and she reported understanding and contentment. Will endorse to Noc shift and continue to monitor. Assessment What has happened this shift: Pt. asleep at start of shift. Pt was awakened for meds skiped snack and when this nurse tried to interview her she said I just want to sleep you can ask questions later. S/I, H/I: Denies. A/VH: Denies. Sleep: Napped intermittently throughout the day. ADL's: Independent with prompting. Group attendance: No Were meds taken: Yes Any med S/E: Denies Mental Status Exam Appearance: Disheveled. Eye contact: Poor. Behavior: Isolates to her room, laying in bed. Speech: Minimal, quiet. Mood: Depressed. Affect: Flat. Thought process: Thought blocking. Thought Content: Unable to assess. Cognition: A&Ox3 (not to situation) Insight: Poor. Judgment: Poor. Interventions PRN's used: None Therapeutic interventions: Maintained a safe and therapeutic environment, ensured contract for safety, provided clear and simple instructions, attempted to orient to reality, monitored behavior and need for intervention, provided positive encouragement, and maintained Q 15min checks. Restraints/seclusion/emergency medication: N/A Justification of Continued Inpatient Treatment: Pt. continues to be gravely disabled and requires titration of medications to prevent decompensation and readmission
[2020-05-24 07:16] VITALS: BP 107/67
[2020-05-24] MEDS: atorvastatin 20mg tablet PO SCH (08:21)
--- NOTE | 2020-05-24 13:52 | NUR ---
Nursing Progress Note: Legal hold: 5150 Client on involuntary status for GD Report received from nurse with use of SBAR: Rosalba Thompson RN Why are they here: Pt. had been transferred from a hospital in [place], [facility]. She had been brought there by police after being found wandering the streets. Pt. claims she is homeless, however per previous report from pt's daughter she lives in mobile home in [facility]. Pt. has a history of paranoid schizophrenia and was previously discharged form [facility] in February. Pt. reports S/I with a plan to drown herself, she states, "I tried by the water was too cold." Pt. also reports that she is having S/I r/t what appears to be a paranoid delusion that others want to hurt her. Pt. states, "They want to chop me up in pieces and wrap a aisha chain around my neck." This medical writer provided education to pt. regarding her safety on the unit and she reported understanding and contentment. Assessment What has happened this shift: Received pt. sleeping in bed at the beginning of the shift, she was awoken for staff to attend breakfast in the Group Room, and afterwards retreated back to bed. Pt. continued to isolate in bed throughout the day, napping intermittently, but does attend meals. 1:1 completed at bedside, pt. presents as cooperative, fatigued, isolative, and guarded with conversation. She denies any S/I, H/I, A/V/[place], and no delusional statements made. Pt. does admit that she is feeling constipated and has not had a BM while here, bowl sounds are hypoactive. DENYS Lyle notified and obtained an order to Colace BID. This medical writer also educated pt. regarding the necessity of obtaining a UA per standing order from Dr. López, pt. reports understanding. Pt. received a telephone call form her family in the afternoon, appeared to go well. S/I, H/I: Denies A/VH: Denies, does not appear internally preoccupied Sleep: Sleep hours are 9.5, and pt. remains in bed napping intermittently throughout the shift ADL's: Requires encouragement from staff Group attendance: No Were meds taken: Yes Any med S/E: None Mental Status Exam Appearance: Disheveled, however appropriately dressed Eye contact: Fair Behavior: Cooperative, fatigued, isolative, and guarded Speech: Soft, responds with 1-2 word answers to direct questions only Mood: Guarded Affect: Flat Thought process: Poverty of thought, possible thought blocking Thought Content: Unable to assess Cognition: A&O X3 Insight: Poor Judgment: Poor Interventions PRN's used: None Therapeutic interventions: Maintained a safe and therapeutic environment, ensured contract for safety, provided clear and simple instructions, provided orientation to reality, encouraged independent performance of ADLs and participation on the unit, obtained an order for Colace BID per pt. report of constipation, educated pt. regarding the need for a U/A, and maintained Q 15min safety checks. Restraints/seclusion/emergency medication: N/A Justification of Continued Inpatient Treatment: Per DENYS Lyle, pt. requires medication adjustments and a safe and supportive environment.
[2020-05-24 19:02] VITALS: BP 97/51
[2020-05-24] MEDS: olanzapine 10mg tablet PO SCH (20:22)
[2020-05-24] MEDS: traZODone 50mg tablet PO PRN (20:22)
[2020-05-24] MEDS: docusate sod 100mg capsule PO SCH (20:22)
--- NOTE | 2020-05-24 22:48 | NUR ---
Nursing Progress Note: Legal hold: 5150 Client on involuntary status for GD Report received from nurse with use of SBAR: LEONARDO Murray Why are they here: Pt. had been transferred from a hospital in [place], [facility]. She had been brought there by police after being found wandering the streets. Pt. claims she is homeless, however per previous report from pt's daughter she lives in mobile home in [facility]. Pt. has a history of paranoid schizophrenia and was previously discharged form [facility] in February. Pt. reports S/I with a plan to drown herself, she states, "I tried by the water was too cold." Pt. also reports that she is having S/I r/t what appears to be a paranoid delusion that others want to hurt her. Pt. states, "They want to chop me up in pieces and wrap a aisha chain around my neck." This repairer typewriter provided education to pt. regarding her safety on the unit and she reported understanding and contentment. Assessment What has happened this shift: Pt isolated to her room sleeping at shift change. Pt refused to get up for snacks and refused to give a UA sample. Pt was med compliant . S/I, H/I: Denies A/VH: Denies, does not appear internally preoccupied Sleep: Sleep hours are 9.5, and pt. remains in bed napping intermittently throughout the shift ADL's: Requires encouragement from staff Group attendance: No Were meds taken: Yes Any med S/E: None Mental Status Exam Appearance: Disheveled, however appropriately dressed Eye contact: Fair Behavior: Cooperative, fatigued, isolative, and guarded Speech: Soft, responds with 1-2 word answers to direct questions only Mood: Guarded Affect: Flat Thought process: Poverty of thought, possible thought blocking Thought Content: Unable to assess Cognition: A&O X3 Insight: Poor Judgment: Poor Interventions PRN's used: None Therapeutic interventions: Maintained a safe and therapeutic environment, ensured contract for safety, provided clear and simple instructions, provided orientation to reality, encouraged independent performance of ADLs and participation on the unit, obtained an order for Colace BID per pt. report of constipation, educated pt. regarding the need for a U/A, and maintained Q 15min safety checks. Restraints/seclusion/emergency medication: N/A Justification of Continued Inpatient Treatment: Per DENYS Lyle, pt. requires medication adjustments and a safe and supportive environment.
[2020-05-25 07:00] VITALS: BP 109/64
[2020-05-25] MEDS: docusate sod 100mg capsule PO SCH ×2 (08:14→20:12)
[2020-05-25] MEDS: atorvastatin 20mg tablet PO SCH (08:14)
--- NOTE | 2020-05-25 11:09 | NUR ---
Initial: patient eating 100% of regular diet. Meeting nutrition needs. Recommend: 1. continue regular diet 2. bowel care as needed 3. weekly weights Addendum: 05/25/20 at [address] Amended: Links added.
--- NOTE | 2020-05-25 11:24 | NUR ---
Nursing Progress Note: Legal hold: Voluntary Client on involuntary status for GD Report received from nurse with use of SBAR: LEONARDO Murray Why are they here: Pt. had been transferred from a hospital in [place], [facility]. She had been brought there by police after being found wandering the streets. Pt. claims she is homeless, however per previous report from pt's daughter she lives in mobile home in [facility]. Pt. has a history of paranoid schizophrenia and was previously discharged form [facility] in February. Pt. reports S/I with a plan to drown herself, she states, "I tried by the water was too cold." Pt. also reports that she is having S/I r/t what appears to be a paranoid delusion that others want to hurt her. Pt. states, "They want to chop me up in pieces and wrap a aisha chain around my neck." This screen writer provided education to pt. regarding her safety on the unit and she reported understanding and contentment. Assessment What has happened this shift: Received pt. sleeping in bed at the beginning of the shift, she was awoken for staff to attend breakfast in the Group Room, and afterwards retreated immediately back to bed as is her routine. 1:1 completed at bedside, pt. continues to present as guarded and isolative. She also continues to deny any S/I, however admits that she if feeling depressed. Pt. appears depressed AEB ongoing fatigue, poor eye contact, and a soft/indiscernible voice at times. When questioned further by this screen writer regarding her depression, pt. admits that she feels depressed r/t to what appears to be an ongoing paranoid delusion. Pt. states, "Someone in [place] wants to cut my knee off with an axe." This screen writer provided education to pt. regarding her safety here on the unit, and she reported understanding and contentment. Pt. continued to isolate in bed throughout the morning, however with much encouragement from staff, did reluctantly attend the end of morning group. This screen writer also provided re-education to to pt. regarding the necessity of obtaining a UA, however pt. continues to refuse. She states slightly agitatedly, "I don't have to go!" Pt. reports she has been urinating without any difficulty, and denies any urinary frequency or burning during urination. Will continue to attempt to obtain UA. S/I, H/I: Denies A/VH: Denies, does not appear internally preoccupied Sleep: Sleep hours are 9, and pt. remains in bed napping intermittently throughout much of the shift ADL's: Requires encouragement from staff Group attendance: Yes, reluctantly with much encouragement from staff Were meds taken: Yes Any med S/E: None Mental Status Exam Appearance: Disheveled, however appropriately dressed Eye contact: Fair Behavior: Cooperative, fatigued, isolative, and guarded Speech: Soft and difficult to hear at times, responds with 1-2 word answers to direct questions only Mood: Guarded Affect: Flat Thought process: Poverty of thought, possible thought blocking Thought Content: Paranoid delusions Cognition: A&O X3 Insight: Poor Judgment: Poor Interventions PRN's used: None Therapeutic interventions: Maintained a safe and therapeutic environment, ensured contract for safety, provided clear and simple instructions, attempted to orient to reality, encouraged independent performance of ADLs and participation on the unit, continued to provide education to pt. regarding the need for a U/A, and maintained Q 15min safety checks. Restraints/seclusion/emergency medication: N/A Justification of Continued Inpatient Treatment: Per DENYS Lyle, pt. requires medication adjustments and a safe and supportive environment. A plan for discharge is needed. Addendum: 05/25/20 at 1252 by Adina Trinidad RN Urine obtained and sent to lab, results pending.
[2020-05-25 13:04] LABS: CLARITY,URINE CLOUDY (Clear); COLOR,URINE YELLOW (Yellow); GLUCOSE, URINE NEGATIVE (Neg); KETONES,URINE NEGATIVE (Neg); LEUKOCYTE ESTERASE ,URINE MODERATE (Neg); NITRITES, URINE NEGATIVE (Neg); OCCULT BLOOD,URINE NEGATIVE (Neg); PH,URINE 6.5 (4.8-8.0); PROTEIN,URINE NEGATIVE (Neg); UROBILINOGEN,URINE 0.2 E.U/dL (0.2-1.0)
[2020-05-25 13:07] LABS: UA COLLECTION TYPE CLN CATCH MIDSTREAM
[2020-05-25 13:14] LABS: MUCUS STRANDS FEW /LPF (Neg); SQUAMOUS EPITHELIAL CELL,UR MANY /LPF (FEW)
[2020-05-25 13:15] LABS: BACTERIA,URINE 1+ /HPF (Neg); RBC,URINE 0-2 /HPF (0-2); TRANSITIONAL EPI CELLS,URINE FEW /HPF
--- NOTE | 2020-05-25 13:47 | NUR ---
CM-DCP Presenting Issues: Pt's on voluntary stay and in need of a dcp. Interventions: SS met w/pt and engaged her in dcp activities, per session, pt reports that she had already spoken to her daughter last night and pt will stay with her daughter Carina upon d/c. Pt signed ALESIA for SS to coordinate dcp w/dtr. SS had t/c w/Carina Rhodes, pt's dtr, per t/c dtr would like for pt to come to dtr's home upon d/c, dtr works so will be available to picker packer pt after 5:00PM when d/c. Dtr's fiance will be available to provide support to pt when dtr is at work. SS educated pt's dtr on support via IHSS services dtr would be ok w/having pt access IHSS support if pt is willing to do so. Plan: SS to discuss IHSS services and provide referral if pt would like to access IHSS support. Paulette Whitmore LCSW Addendum: 05/26/20 at 1356 by Paulette Whitmore SS Amended: Links added.
--- NOTE | 2020-05-25 13:51 | NUR ---
Nursing Note: Pt. previously had a UA ordered by Dr. López. UA collected showed moderate leucocyte esterase and 10-20 WBC, culture was rejected r/t contamination. Pt. denies any current s/s of UTI. Per Dr. López, cancel U/A at this time, as pt. is not having any s/s (denies burning, pain, or frequency with urination).
--- NOTE | 2020-05-25 14:46 | NUR ---
Nursing Note: This marketing underwriter spoke to pt's son-in-law Robert with her consent. He is concerned regarding pt's Voluntary hold in regard to her history of GD and elopement. Will endorse to Dr. Reynoso. Addendum: 05/25/20 at 1657 by Adina Trinidad RN Called and spoke to pt's Son-in-law per Dr. Reynoso, to let him know that pt. will be placed on a hold if pt. attempting to leave AMA, he reported contentment.
[2020-05-25 19:18] VITALS: BP 99/59
[2020-05-25] MEDS: olanzapine 10mg tablet PO SCH (20:11)
[2020-05-25] MEDS: traZODone 50mg tablet PO PRN (20:12)
--- NOTE | 2020-05-25 23:06 | NUR ---
Nursing Progress Note: Legal hold: Voluntary Client on involuntary status for GD Report received from nurse with use of SBAR: LEONARDO Murray Why are they here: Pt. had been transferred from a hospital in [place], [facility]. She had been brought there by police after being found wandering the streets. Pt. claims she is homeless, however per previous report from pt's daughter she lives in mobile home in [facility]. Pt. has a history of paranoid schizophrenia and was previously discharged form [facility] in February. Pt. reports S/I with a plan to drown herself, she states, "I tried by the water was too cold." Pt. also reports that she is having S/I r/t what appears to be a paranoid delusion that others want to hurt her. Pt. states, "They want to chop me up in pieces and wrap a aisha chain around my neck." This underwriter provided education to pt. regarding her safety on the unit and she reported understanding and contentment. Assessment What has happened this shift: Patient continues to isolate to her room. She refused to get up for snack states that she feels tired and dose not want to get out of bed. Pt was med compliant S/I, H/I: Denies A/VH: Denies, does not appear internally preoccupied Sleep: Sleep hours are 9, and pt. remains in bed napping intermittently throughout much of the shift ADL's: Requires encouragement from staff Group attendance: Yes, reluctantly with much encouragement from staff Were meds taken: Yes Any med S/E: None Mental Status Exam Appearance: Disheveled, however appropriately dressed Eye contact: Fair Behavior: Cooperative, fatigued, isolative, and guarded Speech: Soft and difficult to hear at times, responds with 1-2 word answers to direct questions only Mood: Guarded Affect: Flat Thought process: Poverty of thought, possible thought blocking Thought Content: Paranoid delusions Cognition: A&O X3 Insight: Poor Judgment: Poor Interventions PRN's used: None Therapeutic interventions: Maintained a safe and therapeutic environment, ensured contract for safety, provided clear and simple instructions, attempted to orient to reality, encouraged independent performance of ADLs and participation on the unit, continued to provide education to pt. regarding the need for a U/A, and maintained Q 15min safety checks. Restraints/seclusion/emergency medication: N/A Justification of Continued Inpatient Treatment: Per DENYS Lyle, pt. requires medication adjustments and a safe and supportive environment. A plan for discharge is needed.
[2020-05-26] MEDS: docusate sod 100mg capsule PO SCH ×2 (08:13→20:22)
[2020-05-26] MEDS: atorvastatin 20mg tablet PO SCH (08:13)
[2020-05-26 08:24] VITALS: BP 85/52
[2020-05-26 08:30] VITALS: BP 110/75
--- NOTE | 2020-05-26 12:52 | NUR ---
Nursing Progress Note: Legal hold: Voluntary Client on involuntary status for GD Report received from nurse with use of SBAR: LEONARDO Del Toro Why are they here: Pt. had been transferred from a hospital in [facility]. She had been brought there by police after being found wandering the streets. Pt. claims she is homeless, however per previous report from pt's daughter she lives in mobile home in [facility]. Pt. has a history of paranoid schizophrenia and was previously discharged form [facility] in February. Pt. reports S/I with a plan to drown herself, she states, "I tried by the water was too cold." Pt. also reports that she is having S/I r/t what appears to be a paranoid delusion that others want to hurt her. Pt. states, "They want to chop me up in pieces and wrap a aisha chain around my neck." This brief writer provided education to pt. regarding her safety on the unit and she reported understanding and contentment. Assessment What has happened this shift: Received pt. sleeping in bed at the beginning of the shift, she awoke and attended breakfast, and afterwards retreated immediately back to bed as is her routine. Pt. continues to remain in bed throughout the shift napping intermittently, and becomes slightly agitated when encouraged to attend groups and participate on the unit. 1:1 completed at bedside, pt's speech remains soft and difficult to hear at times, and she responds with 1-2 word answers to direct questions only. Pt. continues to deny any S/I, however endorses ongoing depression and anxiety. She states, "I want to get out of the hospital." When questioned by this brief writer regarding where she would go to, pt. reports that she would go live with her daughter. She agreed that she would feel safe there. When questioned by this brief writer regarding pt's ongoing paranoid delusions that others want to hurt her. Pt. first denied, but then admitted that she continues to be fearful that someone wants to "cut off her leg with an axe and wrap a aisha chain around her neck." She refused to elaborate on this fear. Pt. remains in bed throughout the shift, but does get up for meals, will continue to monitor. S/I, H/I: Denies A/VH: Denies, does not appear internally preoccupied Sleep: Sleep hours are 10.5, pt. continues to remain in bed throughout the shift napping intermittently. ADL's: Requires encouragement from staff Group attendance: Pt. refused, stated slightly agitatedly, "I don't like them!" Were meds taken: Yes Any med S/E: None Mental Status Exam Appearance: Disheveled r/t laying in bed, however appropriately dressed Eye contact: Fair Behavior: Cooperative, fatigued, anxious, isolative, and guarded Speech: Soft and difficult to hear at times, responds with 1-2 word answers to direct questions only Mood: Guarded, becomes slightly agitated at times Affect: Flat Thought process: Poverty of thought, possible thought blocking Thought Content: Paranoid delusions Cognition: A&O X3 Insight: Poor Judgment: Poor Interventions PRN's used: None Therapeutic interventions: Maintained a safe and therapeutic environment, ensured contract for safety, provided clear and simple instructions, attempted to orient to reality, encouraged independent performance of ADLs and participation on the unit, provided active listening and positive encouragement, and maintained Q 15min safety checks. Restraints/seclusion/emergency medication: N/A Justification of Continued Inpatient Treatment: Per Dr. Reynoso, pt. requires medication adjustments and a safe and supportive environment. A plan for discharge is needed.
--- NOTE | 2020-05-26 17:05 | NUR ---
CM-Linkages Presenting Issues: Pt struggles with managing her meds at home, unable to remember when & how much to take. Daughter reports that pt can't be left alone as pt will get paranoid and leave the house and family would not be able to find her for days. Interventions: SS met with pt and engaged her in completing an IHSS application, SS faxed IHSS application to [facility]. Plan: Pt & family will f/u with [facility] upon d/c to schedule pt's in-home assessment. Paulette Whitmore LCSW Addendum: 05/26/20 at 1709 by Paulette Whitmore Amended: Links added.
[2020-05-26 19:38] VITALS: BP 101/60
[2020-05-26] MEDS ORDERED: olanzapine 10mg tablet PO SCH (21:00)
--- NOTE | 2020-05-27 01:13 | NUR ---
Nursing Progress Note: Legal hold: Voluntary Client on involuntary status for GD Report received from LEONARDO Murray with use of SBAR: Why are they here: Pt. had been transferred from a hospital in [place], [facility]. She had been brought there by police after being found wandering the streets. Pt. claims she is homeless, however per previous report from pt's daughter she lives in mobile home in [facility]. Pt. has a history of paranoid schizophrenia and was previously discharged form [facility] in February. Pt. reports S/I with a plan to drown herself, she states, "I tried by the water was too cold." Pt. also reports that she is having S/I r/t what appears to be a paranoid delusion that others want to hurt her. Pt. states, "They want to chop me up in pieces and wrap a aisha chain around my neck." This ad writer provided education to pt. regarding her safety on the unit and she reported understanding and contentment. Assessment What has happened this shift: The patient was found sleeping at shift change. asked her if she get up for 1:1, "no, i don't want to get up, I"m sleeping." She was not seen out of bed all evening, but was compliant with HS meds, and went back to sleep. S/I, H/I: Denies A/VH: Denies. Sleep: See sleep assessment ADL's: Requires encouragement from staff Group attendance: No Were meds taken: Yes Any med S/E: None reported or observed. Mental Status Exam Appearance: Disheveled, however appropriately dressed Eye contact: Poor Behavior: Cooperative, fatigued, isolative, and guarded Speech: Soft, but wnl Mood: Guarded Affect: Flat Thought process: Poverty of thought, possible thought blocking Thought Content: Paranoid delusions Cognition: A&O X3 Insight: Poor Judgment: Poor Interventions PRN's used: None Therapeutic interventions: Maintained a safe and therapeutic environment, ensured contract for safety, provided clear and simple instructions, attempted to orient to reality, encouraged independent performance of ADLs and participation on the unit, continued to provide education to pt. regarding the need for a U/A, and maintained Q 15min safety checks. Restraints/seclusion/emergency medication: N/A Justification of Continued Inpatient Treatment: Per Valdo, PA, pt. requires medication adjustments and a safe and supportive environment. A plan for discharge is needed.
[2020-05-27 07:50] VITALS: BP 105/64
[2020-05-27] MEDS: atorvastatin 20mg tablet PO SCH (07:52)
[2020-05-27] MEDS: buPROPion SR 100mg tab PO SCH ×2 (07:52→12:23)
[2020-05-27] MEDS: docusate sod 100mg capsule PO SCH (07:52)
[2020-05-27] MEDS ORDERED: BUPR200T34 PO (11:58)
[2020-05-27] MEDS ORDERED: OLAN20TA34 PO (11:58)
[2020-05-27] MEDS ORDERED: ATOR40TA71 PO (11:58)
[2020-05-27] MEDS ORDERED: DOCU100C40 PO (11:58)
--- NOTE | 2020-05-27 13:22 | NUR ---
DISCHARGE NOTE: Pt. discharged to home with daughter. Pt. picked up by daughter in car. Pt. discharged with all belongings and valuables. RN went over discharge packet including medication regimen, and f/u plan. Pt. verbalized understanding of medication regimen and f/u plan and signed all paperwork. Pt. denies SI/HI, A/V hallucinations. Pt. in no apparent distress. Pt. refused nicotine replacement. Pt.'s scripts sent via escript to pt.'s pharmacy.
[2020-05-27 13:51] LABS: CLARITY,URINE CLOUDY (Clear); COLOR,URINE YELLOW (Yellow); GLUCOSE, URINE NEGATIVE (Neg); KETONES,URINE NEGATIVE (Neg); LEUKOCYTE ESTERASE ,URINE LARGE (Neg); NITRITES, URINE NEGATIVE (Neg); OCCULT BLOOD,URINE TRACE-INTACT (Neg); PROTEIN,URINE NEGATIVE (Neg); UROBILINOGEN,URINE 0.2 E.U/dL (0.2-1.0)
[2020-05-27 13:57] LABS: SQUAMOUS EPITHELIAL CELL,UR MANY /LPF (FEW); UA COLLECTION TYPE NON-SPECIFIED
[2020-05-27 13:58] LABS: BACTERIA,URINE 2+ /HPF (Neg); RBC,URINE 0-2 /HPF (0-2)
--- NOTE | 2020-05-27 14:00 | NUR ---
RN received call from lab reporting that pt.'s most recent U/A was contaminated and a culture could not be done. RN called pt.'s daughter Yola to inform her of this. RN informed by pt.'s daughter that she will bring this up during her f/u appointment tomorrow at [facility] with the provider.
== END 2020-05-27 13:22 | disposition home or self-care (01) | DRG 750 ==
LOC: ADULT MH 16:31
PROVIDERS: ADMIT Psychiatry & Neurology Psychiatry; ATTEND Psychiatry & Neurology Psychiatry
DX: F20.0 Paranoid schizophrenia (principal); F12.90 Cannabis use, unspecified, uncomplicated; F17.210 Nicotine dependence, cigarettes, uncomplicated; F32.9 Major depressive disorder, single episode, unspecified; E78.5 Hyperlipidemia, unspecified; Z20.828 Contact with and (suspected) exposure to other viral communicable diseases; Z56.0 Unemployment, unspecified; Z90.710 Acquired absence of both cervix and uterus; Z85.41 Personal history of malignant neoplasm of cervix uteri; Z91.14 Patient's other noncompliance with medication regimen
CPT/HCPCS: 36415; 80053; 80061; 81001; 83036; 84443; 85025; 87081

== ENCOUNTER 2020-06-22 14:40 | Emergency (ER) | payer MEDICAID ==
[~2020-06-22] VITALS: Ht 157.5 cm; Wt 60.0 kg
[~2020-06-22 14:40] MED LIST changes: -ATOR20TA66 PO; +ATOR40TA71 PO; +BUPR200T34 PO; +DOCU100C40 PO; -SIMV-42 PO
[2020-06-22 15:29] LABS: CLARITY,URINE CLOUDY (Clear); COLOR,URINE YELLOW (Yellow); GLUCOSE, URINE NEGATIVE (Neg); KETONES,URINE >=80 mg/dl (Neg); LEUKOCYTE ESTERASE ,URINE MODERATE (Neg); NITRITES, URINE NEGATIVE (Neg); OCCULT BLOOD,URINE MODERATE (Neg); PROTEIN,URINE TRACE mg/dl (Neg); UROBILINOGEN,URINE 0.2 E.U/dL (0.2-1.0)
[2020-06-22 15:34] LABS: URINE AMPHETAMINE SCREEN NEGATIVE (Neg); URINE BARBITUATE SCREEN NEGATIVE (Neg); URINE BENZODIAZEPINES SCREEN NEGATIVE (Neg); URINE CANNABINOID SCREEN POSITIVE (Neg); URINE COCAINE SCREEN NEGATIVE (Neg); URINE METHADONE SCREEN NEGATIVE (Neg); URINE OPIATE SCREEN NEGATIVE (Neg); URINE PHENCYCLIDINE SCREEN NEGATIVE (Neg)
[2020-06-22 15:39] LABS: UA COLLECTION TYPE CLN CATCH MIDSTREAM
[2020-06-22 15:41] LABS: WBC,URINE 20-30 /HPF (0-4)
[2020-06-22 15:42] LABS: BACTERIA,URINE 2+ /HPF (Neg); MUCUS STRANDS MANY /LPF (Neg); SQUAMOUS EPITHELIAL CELL,UR MANY /LPF (FEW); TRANSITIONAL EPI CELLS,URINE FEW /HPF
[2020-06-22 15:50] LABS: BASOPHILS # (AUTO) 0.1 X10'3 (0-0.2); BASOPHILS % (AUTO) 0.4 % (0-1); EOSINOPHILS % (AUTO) 0.2 % (0-6); HEMATOCRIT 40.8 % (35.0-45.0); HEMOGLOBIN 13.4 g/dl (12.0-16.0); LYMPHOCYTES # (AUTO) 1.1 X10'3 (1.1-4.8); LYMPHOCYTES % (AUTO) 9.6 % (21-51); MEAN CORPUSCULAR HEMOGLOBIN 29.9 PG (27.0-31.0); MEAN CORPUSCULAR HGB CONC 32.9 g/dL (33.0-36.5); MEAN CORPUSCULAR VOLUME 90.8 FL (78-98); MEAN PLATELET VOLUME 7.6 FL (7.4-10.4); MONOCYTES # (AUTO) 0.7 X10'3 (0-0.9); MONOCYTES % (AUTO) 5.6 % (2-12); NEUTROPHILS % (AUTO) 84.2 % (42-75); PLATELET COUNT 269 X10'3 (140-440); RED BLOOD COUNT 4.49 X10'6 (4.20-5.60); RED CELL DISTRIBUTION WIDTH 14.2 % (11.5-14.5); WHITE BLOOD COUNT 11.9 X10'3 (4.5-11.0)
[2020-06-22 16:03] LABS: ALANINE AMINOTRANSFERASE 18 U/L (12-78); ALBUMIN 4.3 G/DL (3.4-5.0); ALBUMIN/GLOBULIN RATIO 1.1 (1.1-1.5); ALKALINE PHOSPHATASE 85 IU/L (46-116); ANION GAP 14 (8-16); ASPARTATE AMINO TRANSFERASE 15 U/L (10-37); BILIRUBIN,TOTAL 1.2 MG/DL (0.1-1.0); BLOOD UREA NITROGEN 20 MG/DL (7-18); BUN/CREATININE RATIO 20.4 (6.6-38.0); CALCIUM 9.6 MG/DL (8.5-10.1); CHLORIDE 102 MMOL/L (99-107); CREATININE 0.98 MG/DL (0.40-0.90); GLUCOSE 92 MG/DL (70-104); POTASSIUM 3.4 MMOL/L (3.5-5.1); SODIUM 142 MMOL/L (135-145); TOTAL CARBON DIOXIDE 26.5 MMOL/L (24-32); TOTAL PROTEIN 8.1 G/DL (6.4-8.2); eGFR 58 ML/MIN
[2020-06-22 16:13] LABS: ETHANOL < 0.010 GM/DL (0.0-0.010)
--- NOTE | 2020-06-22 16:30 | NUR ---
FAXED PACKET [facility]
--- NOTE | 2020-06-22 17:07 | NUR ---
COOK [employer] AND CHIPS AT BEDSIDE FOR ASSESSMENT. WILL COLLECT UA AFTER ASSESSMENT.
[2020-06-22 17:29] VITALS: BP 122/89
--- NOTE | 2020-06-22 17:29 | NUR ---
PT PLACED ON PSYCH HOLD BY [facility]. PER [facility], DAUGHTER WAS CONTACT AND TODAY DAUGHTER CALLED 911 FOR PATIENT BECAUSE SHE HAD A POWER CORD WRAPPED AROUND HER NECK HER SI PLAN. HX OF SCHIZOPHRENIA WITH COMMAND HALLUCINATIONS. IN PATIENTS' MIND, SHE PLANS TO KILL HERSELF BEFORE "THEY" CAN KILL HER. PRIMARY RN AWARE.
[2020-06-22 17:34] LABS: CLARITY,URINE SLIGHTLY CLOUDY (Clear); COLOR,URINE YELLOW (Yellow); GLUCOSE, URINE NEGATIVE (Neg); KETONES,URINE >=80 mg/dl (Neg); LEUKOCYTE ESTERASE ,URINE TRACE (Neg); NITRITES, URINE NEGATIVE (Neg); OCCULT BLOOD,URINE MODERATE (Neg); PROTEIN,URINE TRACE mg/dl (Neg); UROBILINOGEN,URINE 0.2 E.U/dL (0.2-1.0)
[2020-06-22 17:42] LABS: UA COLLECTION TYPE CLN CATCH MIDSTREAM
[2020-06-22 17:44] LABS: MUCUS STRANDS MANY /LPF (Neg); SQUAMOUS EPITHELIAL CELL,UR MANY /LPF (FEW)
[2020-06-22 17:45] LABS: HYALINE CASTS 0-3 /LPF (NEGATIVE)
[2020-06-22 17:47] LABS: BACTERIA,URINE 2+ /HPF (Neg)
[2020-06-22] MEDS ORDERED: BUSP5TAB3 PO (18:07)
--- NOTE | 2020-06-22 18:30 | NUR ---
spoke to teetee heck regarding urine was rejected for culture for second urine sent. pa does not want straight cath confirmed medication list with carol on cypress and and spoke to [facility], regarding most recent medication list. I also spoke to [facility] office and [facility] office will send most recent medication list
[2020-06-22] MEDS ORDERED: OLAN5TAB26 PO (18:37)
--- NOTE | 2020-06-22 18:44 | NUR ---
DAUGHTER VENKAT PATIENT LIVES WITH HER
--- NOTE | 2020-06-22 19:58 | NUR ---
SBAR TO LEONARDO CHOW. PATIENT ATE HER DINNER. PATIENT IS ASKING QUESTIONS ABOUT : IF MORE INFORMATION IS NEEDED ABOUT HER BROTHER, HER DAUGHTER AND ETC. I REPEATED TO HER THAT WE HAVE ALL THE NECESSARY INFORMATION REGARDING HER INSURANCE.
--- NOTE | 2020-06-22 19:59 | NUR ---
[facility] called and plans to take pt.
[2020-06-22] MEDS ORDERED: busPIRone 5mg tablet PO SCH (20:00)
[2020-06-22] MEDS ORDERED: cephalexin 250mg capsule PO SCH (20:00)
[2020-06-22] MEDS ORDERED: docusate sod 100mg capsule PO SCH (20:00)
[2020-06-22] MEDS ORDERED: cephalexin 250mg capsule PO ONE (20:00)
[2020-06-22] MEDS ORDERED: OLANZAPINE 5 MG TABLET PO SCH (21:00)
--- NOTE | 2020-06-22 21:36 | NUR ---
Patient sleeping on her left side with even, unlabored breathing.
--- NOTE | 2020-06-22 21:55 | NUR ---
assumed care of pt. pt resting in bed on right side. rr of 15.
--- NOTE | 2020-06-22 23:05 | NUR ---
report called to neymar roe.
[2020-06-23] MEDS ORDERED: ATOR40TA71 PO (00:53)
[2020-06-23] MEDS ORDERED: CEPH-572 PO (00:53)
[2020-06-23] MEDS ORDERED: DOCU100C40 PO (00:53)
[2020-06-23] MEDS ORDERED: atorvastatin 20mg tablet PO SCH (08:00)
== END 2020-06-22 23:07 | disposition home or self-care (01) ==
LOC: ER 14:40
DX: R45.851 Suicidal ideations (principal); N39.0 Urinary tract infection, site not specified; F20.9 Schizophrenia, unspecified; Z88.8 Allergy status to other drugs, medicaments and biological substances; Z79.899 Other long term (current) drug therapy
CPT/HCPCS: 36415; 80053; 80305; 80320; 81001; 84443; 85025; 99285

== ENCOUNTER 2020-11-29 10:12 | Emergency (ER) | payer MEDICAID ==
[~2020-11-29] VITALS: Ht 157.5 cm; Wt 71.8 kg
[~2020-11-29 10:12] MED LIST changes: -ATOR40TA71 PO; -BUPR200T34 PO; +BUSP10TA11 PO; -OLAN20TA34 PO; +TRAZ-256 PO
[2020-11-29 11:31] LABS: BASOPHILS # (AUTO) 0.1 X10'3 (0-0.2); BASOPHILS % (AUTO) 0.8 % (0-1); EOSINOPHILS % (AUTO) 0.5 % (0-6); HEMATOCRIT 38.9 % (35.0-45.0); LYMPHOCYTES # (AUTO) 1.9 X10'3 (1.1-4.8); LYMPHOCYTES % (AUTO) 27.4 % (21-51); MEAN CORPUSCULAR HGB CONC 33.5 g/dL (33.0-36.5); MEAN CORPUSCULAR VOLUME 89.7 FL (78-98); MEAN PLATELET VOLUME 6.8 FL (7.4-10.4); MONOCYTES # (AUTO) 0.3 X10'3 (0-0.9); NEUTROPHILS # (AUTO) 4.5 X10'3 (1.8-7.7); NEUTROPHILS % (AUTO) 66.3 % (42-75); PLATELET COUNT 339 X10'3 (140-440); RED BLOOD COUNT 4.34 X10'6 (4.20-5.60); RED CELL DISTRIBUTION WIDTH 14.5 % (11.5-14.5); WHITE BLOOD COUNT 6.8 X10'3 (4.5-11.0)
[2020-11-29 11:48] LABS: ALANINE AMINOTRANSFERASE 15 U/L (12-78); ALBUMIN 3.9 G/DL (3.4-5.0); ALKALINE PHOSPHATASE 78 IU/L (46-116); ANION GAP 10 (8-16); ASPARTATE AMINO TRANSFERASE 12 U/L (10-37); BILIRUBIN,TOTAL 0.7 MG/DL (0.1-1.0); BLOOD UREA NITROGEN 13 MG/DL (7-18); BUN/CREATININE RATIO 18.8 (6.6-38.0); CALCIUM 9.2 MG/DL (8.5-10.1); CHLORIDE 106 MMOL/L (99-107); CREATININE 0.69 MG/DL (0.40-0.90); GLUCOSE 97 MG/DL (70-104); POTASSIUM 3.7 MMOL/L (3.5-5.1); SODIUM 143 MMOL/L (135-145); TOTAL CARBON DIOXIDE 27.5 MMOL/L (24-32); TOTAL PROTEIN 7.9 G/DL (6.4-8.2); eGFR 87 ML/MIN
[2020-11-29 11:59] LABS: ETHANOL < 0.010 GM/DL (0.0-0.010)
--- NOTE | 2020-11-29 14:40 | NUR ---
pt brought from room 15 in the main ED to room 20 in overflow, by CRN without incident, along with belongings
[2020-11-29 14:53] LABS: CLARITY,URINE SLIGHTLY CLOUDY (Clear); COLOR,URINE STRAW (Yellow); GLUCOSE, URINE NEGATIVE (Neg); KETONES,URINE NEGATIVE (Neg); LEUKOCYTE ESTERASE ,URINE SMALL (Neg); NITRITES, URINE NEGATIVE (Neg); OCCULT BLOOD,URINE SMALL (Neg); PROTEIN,URINE NEGATIVE (Neg); UROBILINOGEN,URINE 0.2 E.U/dL (0.2-1.0)
[2020-11-29 14:56] LABS: UA COLLECTION TYPE VOIDED
[2020-11-29 14:59] LABS: BACTERIA,URINE 1+ /HPF (Neg); MUCUS STRANDS FEW /LPF (Neg); SQUAMOUS EPITHELIAL CELL,UR MANY /LPF (FEW); TRANSITIONAL EPI CELLS,URINE MODERATE /HPF; WBC CLUMPS,URINE FEW /HPF (NEGATIVE)
--- NOTE | 2020-11-29 15:00 | NUR ---
in interviewing pt. she states that she is not suicidal, but that she tested positive for covid last week..she thinks it was on Monday, let CRN and Provider know, obtained order for rapid test as she is in overflow
[2020-11-29 15:06] LABS: URINE AMPHETAMINE SCREEN NEGATIVE (Neg); URINE BARBITUATE SCREEN NEGATIVE (Neg); URINE BENZODIAZEPINES SCREEN NEGATIVE (Neg); URINE CANNABINOID SCREEN NEGATIVE (Neg); URINE COCAINE SCREEN NEGATIVE (Neg); URINE METHADONE SCREEN NEGATIVE (Neg); URINE OPIATE SCREEN NEGATIVE (Neg); URINE PHENCYCLIDINE SCREEN NEGATIVE (Neg)
--- NOTE | 2020-11-29 15:40 | NUR ---
patient is Positive for Covid19 will let provider and CRN know
--- NOTE | 2020-11-29 15:47 | NUR ---
pt moved back from room 20 in Overflow to 15 in the ER
--- NOTE | 2020-11-30 07:00 | NUR ---
PT RESTING WITH EYES CLOSED, EFFORTLESS RESPIRATIONS OBSERVED.
[2020-11-30 09:35] VITALS: BP 128/73
--- NOTE | 2020-11-30 09:55 | NUR ---
Infection Control nurse Wayne Oviedo verified with public health pt initial covid swab was taken November 09, 2020. Pt has completed quaritine period and is to be taken off Covid isolation precautions per VO Wayne Oviedo.
--- NOTE | 2020-11-30 11:15 | NUR ---
Pt was evaluated by [facility] Malcolm and was placed on 5150
[2020-11-30] MEDS ORDERED: OLAN2.5T3 PO (12:47)
[2020-11-30] MEDS ORDERED: ARIP30TA3 PO (12:47)
--- NOTE | 2020-11-30 14:20 | NUR ---
Patient ambulatory, steady gait from Main ED to Room 25. No distress observed. Continue to monitor.
--- NOTE | 2020-11-30 15:07 | NUR ---
Patient going to [facility] this afternoon per DANIEL Fowler.
== END 2020-11-30 16:35 | disposition home or self-care (01) ==
LOC: ER 10:13
DX: R45.851 Suicidal ideations (principal); F32.9 Major depressive disorder, single episode, unspecified; F20.9 Schizophrenia, unspecified; Z20.822 Contact with and (suspected) exposure to COVID-19
CPT/HCPCS: 36415; 80053; 80305; 80320; 81001; 84443; 85025; 87635; 99285; C9803

== ENCOUNTER 2022-03-31 10:19 | Emergency (ER) | payer MEDICAID ==
[~2022-03-31] VITALS: Ht 157.5 cm; Wt 85.9 kg
[~2022-03-31 10:19] MED LIST changes: +ARIP30TA3 PO; -DOCU100C40 PO; +OLAN2.5T3 PO; -TRAZ-256 PO
[2022-03-31 11:29] LABS: COLOR,URINE YELLOW (Yellow); GLUCOSE, URINE NEGATIVE (Neg); KETONES,URINE NEGATIVE (Neg); LEUKOCYTE ESTERASE ,URINE MODERATE (Neg); NITRITES, URINE NEGATIVE (Neg); OCCULT BLOOD,URINE MODERATE (Neg); PH,URINE 5.5 (4.8-8.0); PROTEIN,URINE NEGATIVE (Neg); UROBILINOGEN,URINE 0.2 E.U/dL (0.2-1.0)
[2022-03-31 11:40] LABS: URINE HCG NEGATIVE (NEG)
[2022-03-31 11:47] LABS: CLARITY,URINE CLOUDY (Clear)
[2022-03-31 11:48] LABS: UA COLLECTION TYPE CLN CATCH MIDSTREAM
[2022-03-31 11:55] LABS: ALANINE AMINOTRANSFERASE 51 U/L (12-78); ALKALINE PHOSPHATASE 96 IU/L (46-116); ANION GAP 8 (8-16); ASPARTATE AMINO TRANSFERASE 23 U/L (10-37); BILIRUBIN,TOTAL 0.4 MG/DL (0.1-1.0); BLOOD UREA NITROGEN 16 MG/DL (7-18); BUN/CREATININE RATIO 22.2 (6.6-38.0); CALCIUM 9.2 MG/DL (8.5-10.1); CHLORIDE 105 MMOL/L (99-107); CREATININE 0.72 MG/DL (0.40-0.90); GLUCOSE 108 MG/DL (70-104); POTASSIUM 3.9 MMOL/L (3.5-5.1); SODIUM 142 MMOL/L (135-145); TOTAL CARBON DIOXIDE 29.2 MMOL/L (24-32); TOTAL PROTEIN 7.9 G/DL (6.4-8.2); eGFR 82 ML/MIN
[2022-03-31 11:57] LABS: SQUAMOUS EPITHELIAL CELL,UR MANY /LPF (FEW)
[2022-03-31 11:58] LABS: BASOPHILS % (AUTO) 0.7 % (0-1); EOSINOPHILS # (AUTO) 0.1 X10'3 (0-0.9); EOSINOPHILS % (AUTO) 1.4 % (0-6); HEMATOCRIT 41.9 % (35.0-45.0); HEMOGLOBIN 14.1 g/dl (12.0-16.0); LYMPHOCYTES # (AUTO) 1.7 X10'3 (1.1-4.8); LYMPHOCYTES % (AUTO) 22.4 % (21-51); MEAN CORPUSCULAR HEMOGLOBIN 28.9 PG (27.0-31.0); MEAN CORPUSCULAR HGB CONC 33.5 g/dL (33.0-36.5); MEAN CORPUSCULAR VOLUME 86.2 FL (78-98); MEAN PLATELET VOLUME 7.4 FL (7.4-10.4); MONOCYTES # (AUTO) 0.4 X10'3 (0-0.9); MONOCYTES % (AUTO) 5.8 % (2-12); NEUTROPHILS # (AUTO) 5.2 X10'3 (1.8-7.7); NEUTROPHILS % (AUTO) 69.7 % (42-75); PLATELET COUNT 333 X10'3 (140-440); RED BLOOD COUNT 4.87 X10'6 (4.20-5.60); RED CELL DISTRIBUTION WIDTH 15.1 % (11.5-14.5); WHITE BLOOD COUNT 7.4 X10'3 (4.5-11.0)
[2022-03-31 11:58] LABS: BACTERIA,URINE 3+ /HPF (Neg); RENAL CELLS, URINE FEW /HPF
[2022-03-31 11:59] LABS: AMORPHOUS URATES 2+
[2022-03-31 12:14] LABS: URINE AMPHETAMINE SCREEN NEGATIVE (Neg); URINE BARBITUATE SCREEN NEGATIVE (Neg); URINE BENZODIAZEPINES SCREEN NEGATIVE (Neg); URINE CANNABINOID SCREEN POSITIVE (Neg); URINE COCAINE SCREEN NEGATIVE (Neg); URINE METHADONE SCREEN NEGATIVE (Neg); URINE OPIATE SCREEN NEGATIVE (Neg); URINE PHENCYCLIDINE SCREEN NEGATIVE (Neg)
[2022-03-31 12:17] LABS: ETHANOL < 0.010 GM/DL (0.0-0.010)
--- NOTE | 2022-03-31 13:37 | NUR ---
Dr. Maryfs evaluating patient. Continue to monitor.
--- NOTE | 2022-03-31 14:24 | NUR ---
tech sent packet to [facility] [id number]
[2022-03-31] MEDS: cephalexin 250mg capsule PO SCH ×2 (14:30→20:15)
--- NOTE | 2022-03-31 15:17 | NUR ---
[facility],
--- NOTE | 2022-03-31 16:10 | NUR ---
Gina SANCHEZ, evaluating patient. No distress observed. Continue to monitor.
--- NOTE | 2022-03-31 18:23 | NUR ---
Patient sleeping supine. No distress observed. Continue to monitor.
--- NOTE | 2022-03-31 18:50 | NUR ---
One to one with the patient to assess for severity of mental health symptoms. She stated that she felt depressed and that she has not been sleeping well. She stated that she currently is homeless. She denies thought to harm herself or anyone else. She denies problems with urination. She denies A/V hallucinations. She does have a rash under her breasts and MD will be made aware.
--- NOTE | 2022-03-31 19:23 | NUR ---
Nurse to nurse with [facility], Murali
--- NOTE | 2022-03-31 19:47 | NUR ---
The patient has been accepted at [facility] [place] for am admit per Bozena at [facility]
[2022-03-31] MEDS: nystatin 15 GM powder TP SCH (20:14)
--- NOTE | 2022-03-31 21:16 | NUR ---
The patient appears to be sleeping on her bed
--- NOTE | 2022-03-31 22:40 | NUR ---
The patient appears to be sleeping
--- NOTE | 2022-04-01 00:04 | NUR ---
The patient appears to be sleeping
--- NOTE | 2022-04-01 01:10 | NUR ---
The patient appears to be sleeping
--- NOTE | 2022-04-01 03:01 | NUR ---
The patient appears to be sleeping
--- NOTE | 2022-04-01 05:14 | NUR ---
The patient appears to be sleeping
--- NOTE | 2022-04-01 06:59 | NUR ---
Assumed care of pt., pt. is laying on her left side sleeping, rr are even and unlabored.
--- NOTE | 2022-04-01 07:47 | NUR ---
Pt. up to use the bathroom at this time, she is able to ambulate independently without difficulty. She then returns to bed.
--- NOTE | 2022-04-01 08:06 | NUR ---
Per [facility], pt. will be picked up at 0900 for transfer to [facility].
[2022-04-01] MEDS: cephalexin 250mg capsule PO SCH (08:26)
[2022-04-01] MEDS: nystatin 15 GM powder TP SCH (08:27)
--- NOTE | 2022-04-01 08:30 | NUR ---
Pt. was cooperative with MH assessment. She is A&O X3, however is unable to state why she is here. Pt. denies all other MH s/s and is looking forward to transferring to [facility].
--- NOTE | 2022-04-01 09:13 | NUR ---
Pt. was transferred to [facility] at this time accompanied by tow car driver and security. Pt's belongings were reviewed and returned to her by this com writer. She is able to contract for safety and is cooperative.
[2022-04-01 09:34] VITALS: BP 90/54
== END 2022-04-01 09:38 ==
LOC: ER 10:19
DX: F31.9 Bipolar disorder, unspecified (principal); Z20.822 Contact with and (suspected) exposure to COVID-19; N39.0 Urinary tract infection, site not specified; F20.9 Schizophrenia, unspecified; Z79.899 Other long term (current) drug therapy
CPT/HCPCS: 36415; 80053; 80305; 80320; 81001; 81025; 84443; 85025; 87811; 99285

== ENCOUNTER 2023-03-16 16:35 | Emergency (ER) | payer MEDICAID ==
[~2023-03-16] VITALS: Ht 157.5 cm; Wt 90.0 kg
[2023-03-16 16:39] VITALS: BP 210/109; PULSE 119; RESP 16; TEMP 98; O2SAT 97
[2023-03-16 17:22] LABS: URINE HCG NEGATIVE (NEG)
[2023-03-16 17:24] LABS: BILIRUBIN,URINE NEGATIVE (Neg); CLARITY,URINE CLOUDY (Clear); COLOR,URINE YELLOW (Yellow); GLUCOSE, URINE NEGATIVE (Neg); KETONES,URINE NEGATIVE (Neg); LEUKOCYTE ESTERASE ,URINE MODERATE (Neg); NITRITES, URINE NEGATIVE (Neg); OCCULT BLOOD,URINE MODERATE (Neg); PROTEIN,URINE NEGATIVE (Neg); UROBILINOGEN,URINE 0.2 E.U/dL (0.2-1.0)
[2023-03-16 17:25] LABS: UA COLLECTION TYPE CLN CATCH MIDSTREAM
[2023-03-16 17:26] LABS: HEMATOCRIT 43.4 % (35.0-45.0)
[2023-03-16 17:28] LABS: BASOPHILS # (AUTO) 0.1 X10'3 (0-0.2); BASOPHILS % (AUTO) 0.7 % (0-1); EOSINOPHILS % (AUTO) 0.1 % (0-6); HEMOGLOBIN 14.2 g/dl (12.0-16.0); LYMPHOCYTES # (AUTO) 2.3 X10'3 (1.1-4.8); LYMPHOCYTES % (AUTO) 20.2 % (21-51); MEAN CORPUSCULAR HGB CONC 32.7 g/dL (33.0-36.5); MEAN CORPUSCULAR VOLUME 88.8 FL (78-98); MEAN PLATELET VOLUME 7.2 FL (7.4-10.4); MONOCYTES # (AUTO) 0.5 X10'3 (0-0.9); MONOCYTES % (AUTO) 4.6 % (2-12); NEUTROPHILS # (AUTO) 8.4 X10'3 (1.8-7.7); NEUTROPHILS % (AUTO) 74.4 % (42-75); PLATELET COUNT 385 X10'3 (140-440); RED BLOOD COUNT 4.89 X10'6 (4.20-5.60); RED CELL DISTRIBUTION WIDTH 14.8 % (11.5-14.5); WHITE BLOOD COUNT 11.3 X10'3 (4.5-11.0)
[2023-03-16 17:38] LABS: URINE AMPHETAMINE SCREEN POSITIVE (Neg); URINE BARBITUATE SCREEN NEGATIVE (Neg); URINE BENZODIAZEPINES SCREEN NEGATIVE (Neg); URINE CANNABINOID SCREEN POSITIVE (Neg); URINE COCAINE SCREEN NEGATIVE (Neg); URINE METHADONE SCREEN NEGATIVE (Neg); URINE OPIATE SCREEN NEGATIVE (Neg); URINE PHENCYCLIDINE SCREEN NEGATIVE (Neg)
[2023-03-16 17:39] LABS: ALANINE AMINOTRANSFERASE 27 U/L (12-78); ALBUMIN 4.4 G/DL (3.4-5.0); ALKALINE PHOSPHATASE 92 IU/L (46-116); ANION GAP 12 (8-16); ASPARTATE AMINO TRANSFERASE 20 U/L (10-37); BILIRUBIN,TOTAL 0.6 MG/DL (0.1-1.0); BLOOD UREA NITROGEN 13 MG/DL (7-18); BUN/CREATININE RATIO 15.1 (10.0-20.0); CALCIUM 9.7 MG/DL (8.5-10.1); CHLORIDE 105 MMOL/L (99-107); CREATININE 0.86 MG/DL (0.40-0.90); GLUCOSE 121 MG/DL (70-104); POTASSIUM 3.6 MMOL/L (3.5-5.1); SODIUM 140 MMOL/L (135-145); TOTAL CARBON DIOXIDE 22.9 MMOL/L (24-32); TOTAL PROTEIN 8.6 G/DL (6.4-8.2); eCRCL 53 ML/MIN; eGFR 67 ML/MIN
[2023-03-16 17:45] LABS: BACTERIA,URINE 2+ /HPF (Neg); MUCUS STRANDS MANY /LPF (Neg); SQUAMOUS EPITHELIAL CELL,UR MANY /LPF (FEW)
[2023-03-16 17:46] LABS: RBC,URINE 0-2 /HPF (0-2); TRANSITIONAL EPI CELLS,URINE FEW /HPF; WBC,URINE 50-100 /HPF (0-4)
[2023-03-16 17:48] LABS: ETHANOL < 10 MG/DL (<10); THYROID STIMULATING HORMONE 1.01 ulU/ml (0.34-4.50)
[2023-03-17] MEDS ORDERED: NO HOME MEDS (20:03)
== END 2023-03-16 18:29 | disposition left against medical advice (07) ==
LOC: ER 16:36
DX: R39.9 Unspecified symptoms and signs involving the genitourinary system (principal); Z20.822 Contact with and (suspected) exposure to COVID-19; Z53.21 Procedure and treatment not carried out due to patient leaving prior to being seen by health care provider
CPT/HCPCS: 36415; 80053; 80305; 80320; 81001; 81025; 84443; 85025; 87811; 99281

== ENCOUNTER 2023-03-17 17:58 | Emergency (ER) | payer MEDICAID ==
[~2023-03-17] VITALS: Ht 162.6 cm; Wt 80.0 kg
[2023-03-17 19:06] LABS: BASOPHILS # (AUTO) 0.2 X10'3 (0-0.2); BASOPHILS % (AUTO) 1.2 % (0-1); EOSINOPHILS # (AUTO) 0.1 X10'3 (0-0.9); EOSINOPHILS % (AUTO) 0.5 % (0-6); HEMATOCRIT 42.2 % (35.0-45.0); HEMOGLOBIN 13.9 g/dl (12.0-16.0); LYMPHOCYTES # (AUTO) 0.9 X10'3 (1.1-4.8); LYMPHOCYTES % (AUTO) 6.4 % (21-51); MEAN CORPUSCULAR HEMOGLOBIN 29.1 PG (27.0-31.0); MEAN CORPUSCULAR VOLUME 88.1 FL (78-98); MEAN PLATELET VOLUME 7.1 FL (7.4-10.4); MONOCYTES # (AUTO) 0.5 X10'3 (0-0.9); MONOCYTES % (AUTO) 3.8 % (2-12); NEUTROPHILS # (AUTO) 12.7 X10'3 (1.8-7.7); NEUTROPHILS % (AUTO) 88.1 % (42-75); PLATELET COUNT 327 X10'3 (140-440); RED BLOOD COUNT 4.79 X10'6 (4.20-5.60); RED CELL DISTRIBUTION WIDTH 14.9 % (11.5-14.5); WHITE BLOOD COUNT 14.4 X10'3 (4.5-11.0)
[2023-03-17 19:13] LABS: ALANINE AMINOTRANSFERASE 21 U/L (12-78); ALBUMIN 4.4 G/DL (3.4-5.0); ALKALINE PHOSPHATASE 98 IU/L (46-116); ANION GAP 10 (8-16); ASPARTATE AMINO TRANSFERASE 17 U/L (10-37); BILIRUBIN,TOTAL 1.3 MG/DL (0.1-1.0); BLOOD UREA NITROGEN 14 MG/DL (7-18); BUN/CREATININE RATIO 15.9 (10.0-20.0); CHLORIDE 100 MMOL/L (99-107); CREATININE 0.88 MG/DL (0.40-0.90); GLUCOSE 119 MG/DL (70-104); POTASSIUM 3.9 MMOL/L (3.5-5.1); SODIUM 137 MMOL/L (135-145); TOTAL CARBON DIOXIDE 27.4 MMOL/L (24-32); TOTAL PROTEIN 8.7 G/DL (6.4-8.2); eCRCL 57 ML/MIN; eGFR 65 ML/MIN
[2023-03-17 19:15] LABS: BILIRUBIN,URINE NEGATIVE (Neg); CLARITY,URINE TURBID (Clear); COLOR,URINE YELLOW (Yellow); GLUCOSE, URINE NEGATIVE (Neg); KETONES,URINE NEGATIVE (Neg); LEUKOCYTE ESTERASE ,URINE SMALL (Neg); NITRITES, URINE NEGATIVE (Neg); OCCULT BLOOD,URINE MODERATE (Neg); PROTEIN,URINE 30 mg/dl (Neg); UROBILINOGEN,URINE 0.2 E.U/dL (0.2-1.0)
[2023-03-17 19:21] LABS: ETHANOL < 10 MG/DL (<10); THYROID STIMULATING HORMONE 1.02 ulU/ml (0.34-4.50)
[2023-03-17 19:32] LABS: UA COLLECTION TYPE NON-SPECIFIED
[2023-03-17 19:33] LABS: SQUAMOUS EPITHELIAL CELL,UR MANY /LPF (FEW)
[2023-03-17 19:35] LABS: WBC,URINE 30-50 /HPF (0-4)
[2023-03-17 19:36] LABS: BACTERIA,URINE 3+ /HPF (Neg); RBC,URINE NONE SEEN /HPF (0-2)
--- NOTE | 2023-03-17 19:36 | NUR ---
The patient moved to bed 25 from triage. She is fearful about leaving the ER. Apparently she had locked herself into a bathroom because she did not know what to do and she did not have any other place to go. She is very pleasant.
[2023-03-17 19:38] LABS: URINE AMPHETAMINE SCREEN POSITIVE (Neg); URINE BARBITUATE SCREEN NEGATIVE (Neg); URINE BENZODIAZEPINES SCREEN NEGATIVE (Neg); URINE CANNABINOID SCREEN POSITIVE (Neg); URINE COCAINE SCREEN NEGATIVE (Neg); URINE METHADONE SCREEN NEGATIVE (Neg); URINE OPIATE SCREEN NEGATIVE (Neg); URINE PHENCYCLIDINE SCREEN NEGATIVE (Neg)
[2023-03-17] MEDS ORDERED: NO HOME MEDS (20:03)
--- NOTE | 2023-03-17 21:00 | NUR ---
The patient appears to be sleeping
--- NOTE | 2023-03-17 23:01 | NUR ---
The patient up to use the bathroom
--- NOTE | 2023-03-18 01:16 | NUR ---
The patient appears to be sleeping
--- NOTE | 2023-03-18 03:14 | NUR ---
The patient appears to be sleeping
--- NOTE | 2023-03-18 05:02 | NUR ---
The patient appears to be sleeping
[2023-03-18] MEDS ORDERED: cephalexin 250mg capsule PO ONE (06:12)
--- NOTE | 2023-03-18 06:30 | NUR ---
Received pt. awake laying in bed, she greeted this entry writer animatedly.
[2023-03-18] MEDS: cephalexin 250mg capsule PO SCH ×3 (08:16→20:51)
--- NOTE | 2023-03-18 08:30 | NUR ---
Pt. was compliant with medications and 1:1 assessment was completed. She denies any S/I or A/V/[place], however appears somewhat hyper-vigilant and makes what appear to be paranoid delusional statements. Pt. talks in a disorganized manner about why she has been recently locking herself in rooms. She states, "I'm homeless and I need a place to stay. As long as I have water and a toilet I'm okay." However, per recent notes, pt. has been staying with her daughter.
--- NOTE | 2023-03-18 09:40 | NUR ---
[facility] at bedside evaluating pt. at this time.
--- NOTE | 2023-03-18 10:28 | NUR ---
Pt. is sleeping in bed at this time, rr are even and unlabored.
--- NOTE | 2023-03-18 12:03 | NUR ---
Spoke to [facility] regarding possible placement for patient.
[2023-03-18] MEDS ORDERED: acetaminophen 325mg tablet PO ONE (12:05)
--- NOTE | 2023-03-18 12:05 | NUR ---
Pt. c/o mouth pain and this was endorsed to Dr. Mcmillan, received an order for Tylenol 650mg X1.
--- NOTE | 2023-03-18 12:33 | NUR ---
Pt. is accepted at [facility] and will be transferred tomorrow. [facility] will call with an estimated time of pick-up, will endorse to Noc shift. Pt. is sitting up in bed eating at this time.
--- NOTE | 2023-03-18 14:23 | NUR ---
Pt. up to use the bathroom at this time, she then returned to bed.
--- NOTE | 2023-03-18 16:22 | NUR ---
Pt. is laying in bed awake at this time and reports she just awoke from a "bad dream." She denies any current needs, will continue to monitor.
--- NOTE | 2023-03-18 18:16 | NUR ---
Pt. ate dinner and returned back to sleep.
--- NOTE | 2023-03-18 18:30 | NUR ---
Pt recieved lying supine in bed. No respiratory distress noted. Pt breathing even and unlabored on room air. PT Alert and oriented x 4. Pt denies S/I. Pt verbalizes her purpose to hospital stay. She denies pain. Pt lungs clear. Pt denies chest pain. Irregular rhythmn noted. Pt peripheral pulses palpable x 4, Pt reports she has a UTI. Pt has only consumed 3 cups of water today. Warehouse Distribution Manager reinforced increasing daytime fluids, she verbalized understanding. Pt appearance is unkempt. Malodorous. Pt reported she has not showered in a few days but needs one. Bottom of feet are dirty. Pt wearing green scrubs. Pt ate 100% of dinner. 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 Pt denies pain to RUQ. Pt able to follow commands. Pt pleasant during interview. Pt agreeable to POC. Pt will be discharged to [facility] 03/19/23.
--- NOTE | 2023-03-18 20:30 | NUR ---
Pt sleeping, right side lying, breathing even and unlabored, no pain noted.
--- NOTE | 2023-03-18 22:10 | NUR ---
Pt sleeping with no respiratory distress, breathing even and unlabored, even rise and fall of chest, lying supine.
--- NOTE | 2023-03-19 00:17 | NUR ---
Pt sleeping, breathing even and unlabored on room air. Pt lying right side lateral. Even rise and fall of chest.
--- NOTE | 2023-03-19 02:14 | NUR ---
Pt sleeping with no respiratory distress, breathing even and unlabored, even rise and fall of chest, lying left side.
--- NOTE | 2023-03-19 04:00 | NUR ---
Pt sleeping, breathing even and unlabored on room air. Pt lying supine. Even rise and fall of chest.
[2023-03-19 05:38] VITALS: BP 100/59; PULSE 76; RESP 16; O2SAT 97
--- NOTE | 2023-03-19 07:43 | NUR ---
Received Pt in bed sleeping w/o distress at the beginning of the shift. Pt remains sleeping and chart has been reviewed.
[2023-03-19] MEDS: cephalexin 250mg capsule PO SCH ×2 (08:56→12:47)
--- NOTE | 2023-03-19 09:10 | NUR ---
Pt woke and is pleasant and cooperative. Pt ate breakfast and tppk AM keflex w/o issue. Received phone call from [facility] office informing of last picker at approx [phone] to take Pt to [facility].
--- NOTE | 2023-03-19 13:03 | NUR ---
pt picked up by [facility] drivers' cash clerk at 1150 to be taken to [facility]. Pt's belongings inventoried and returned to her.
[2023-03-19 13:08] VITALS: TEMP 97.9
== END 2023-03-19 13:10 ==
LOC: ER 17:58
DX: Z02.71 Encounter for disability determination (principal); Z20.822 Contact with and (suspected) exposure to COVID-19; F20.9 Schizophrenia, unspecified; F32.A Depression, unspecified; Z56.0 Unemployment, unspecified
CPT/HCPCS: 36415; 80053; 80305; 80320; 81001; 84443; 85025; 87811; 99284; 99285